=== PATIENT | male | born 1960 | race Caucasian/White ===

== ENCOUNTER 2023-10-31 22:46 | Observation (INO) ==
--- NOTE | 2023-10-31 23:18 | Emergency Department Note ---
Impression & Plan TIA (transient ischemic attack) ED Provider Note Provider: Sandro Amador MD DATE OF SERVICE: 10/31/2023 CHIEF COMPLAINT: Transient vision and speech issues HISTORY OF PRESENT ILLNESS: Patient is a 62-year-old gentleman history of hyperlipidemia and borderline hypertension presenting here today with family after onset around 9:45 PM of noting that his vision was off. Had trouble reading captions on the TV at home with both eyes. States things felt blurry. Got up and went to the kitchen and had trouble coming with words for his glass/cup. Was able to walk up stairs but was having continued issues with being able to come up with words according to both him and his . No trauma or LOC. No syncope. Denies palpitations. Denies recent travel illness. Denies any numbness or tingling. No slurred speech reported. States he could not remember words for things. Given this came here for evaluation. And route symptoms resolved. Lasted maybe 40 to 45 minutes by the report. No other seizure-like activity. Did have an episode about a year ago about 15 minutes of some blurry vision that resolved. No headache tonight. States symptoms have totally resolved at this time. No history of speech issues. Not on anticoagulation or aspirin. PAST MEDICAL HISTORY: As noted above MEDICATIONS: Reviewed home medication SOCIAL HISTORY: , former smoker PHYSICAL EXAM: GENERAL: alert and oriented in no acute distress on stretcher Head: normocephalic and atraumatic EYES: No injection, discharge or icterus. PERRL, EOMI. NECK: Trachea midline. Supple. ENT: Mucous membranes pink and moist. Pharynx without erythema or exudate. LUNGS: Airway patent. No retractions or tachypnea HEART: Regular bradycardic rate and rhythm. SKIN: Acyanotic, warm, dry, without rashes EXTREMITIES: Without swelling, tenderness or deformity NEUROLOGICAL: No focal deficits. No aphasia. No facial droop or slurred speech. Tongue midline. Normal strength and tone in the extremities. Sensation to gross touch normal. Ambulatory. EK bpm normal sinus rhythm. No PVC or PAC. No acute ST segment elevation or depression with a QTc of 412. CONTINUOUS CARDIAC MONITORING: was ordered and showed a heart rate of 50s bpm in sinus bradycardia to normal sinus rhythm in the 60s Patient's laboratory studies and imaging reviewed. Differential includes Infection, dehydration, metabolic abnormality, hypo/hyperglycemia, electrolyte disturbance, anemia, hypoxia, cardiac sources, intracerebral event, toxicologic, neurologic, as well as other pathologies. IMPRESSION/MEDICAL DECISION MAKING: Patient without headache. Bilateral vision blurriness with associated aphasia. No other numbness or tingling or slurred speech reported. No headache. No significant history of migraine. Symptoms have resolved but lasted 45 minutes. Exam stable here. Will give full dose aspirin. Question this could be TIA. Given the speech issue seems more atypical given his age for complex migraine. Will obtain CT head and CT angiograms to look for vascular abnormality or signs of bleeding but given his resolution of symptoms lower likelihood. Mildly elevated but doubt hypertensive emergency or press syndrome. Does not seem seizure-like in nature. Doubt infectious etiology. Again discussed with them could represent TIA. Blood work here is reassuring without significant anemia or electrolyte abnormality noted. EKG reassuring. CT head and CT angiograms head and neck per radiology report without significant acute findings. Without recurrence of symptoms. Discussed with the patient. Do have concerns could represent TIA pathology. Recommended observation. Patient was agreeable. Hospitalist contacted. DIAGNOSIS: TIA DISPOSITION: Hospitalist will evaluate Patient was agreeable with this plan. Past Med/Surg History Medical History Urinary frequency resolved Right lumbar radiculopathy Benign colonic polyp [place] disease pt unaware Borderline hypertension Hyperlipidemia History of hypertension no meds at present Surgical History History of rotator cuff surgery PS left History of tooth extraction History of tonsillectomy History of vasectomy History of colonoscopy Family History Grandmother (Paternal) Alzheimer disease Uncle Alzheimer disease Father Hypertension Heart disease Other Coronary heart disease Denies family history of Ovarian cancer Prostate cancer Breast cancer Lung cancer Colorectal cancer Social History Smoking Status: Never smoker Tobacco Type: Smokeless Tobacco (Dip or Chew) Age Started Using Tobacco: 17; Age Quit Using Tobacco: 21; packs per day: 0.025; Cigarettes Per Day: socal; Second Hand Exposure: No; Do You Dip or Chew Tobacco: Yes (Former chewer); Hx Alcohol Use: No Hx Substance Use: No Preferred Language: Estonian Communication Ability: Effective Visual Impairment: Limited Hearing Ability: Normal Intelligence Intern Required: No Beliefs That Will Affect Care: None marital status: Current Living Situation: Spouse Current Living Situation Comment: daughter at home current occupational status: employed How many Children do You have: 3 Other Information That Helps Us Care for You: No Feels Safe at Home: Yes Safety Concerns: Feels Safe At This Time Childhood Exposure to Second-Hand Smoke: No Diet: regular Diet Comment: eating healthy caffeine: Yes Dental Care, Regularly: No Physical Activity Frequency: Daily Seatbelt Use: always Sunscreen Use: No Do you think of yourself as: straight/heterosexual Assistive Devices: Contacts and Glasses Allergies Allergies Allergy/AdvReac Type Severity Reaction Status Date / Time rosuvastatin [From Crestor] AdvReac Intermediate muscle Verified 11/01/23 02:39 aches simvastatin [From Zocor] AdvReac Intermediate Muscle Pain Verified 11/01/23 02:39 atorvastatin AdvReac Mild Muscle Pain Verified 11/01/23 02:39 Home Meds Home Medications Medication Instructions Recorded Confirmed multivitamin (Multiple Vitamins 1 tab PO QAM 10/08/21 11/01/23 tablet) meloxicam 15 mg tablet 15 mg PO DAILY 11/01/23 11/01/23 Previous Rx's Medication Instructions Recorded pravastatin 40 mg tablet See Rx Instructions .Route 10/07/23 .COMPLEX #90 tabs Results & Data (ED) Vital Signs Vital Signs - 24 hr 10/31/23 22:48 10/31/23 22:57 10/31/23 23:09 Temperature 36.7 C Temperature Source Temporal Artery Scan Pulse Rate 68 66 61 Pulse Rate from SpO2 Sensor Respiratory Rate 18 15 Respiratory Effort / Characteristics Non-Labored Spontaneous Respiratory Depth Normal Respiratory Pattern Regular Blood Pressure 151/92 H 140/93 Blood Pressure Mean 111 108 Blood Pressure Position Sitting Pulse Oximetry 99 98 Oxygen Delivery Method Room Air Room Air Sepsis Recent Fever Within 48 Hours No Sepsis New/Unexplained Change in Mental Status N/A Sepsis Action Taken by Nursing No Action Required 10/31/23 23:30 11/01/23 00:00 11/01/23 00:00 Temperature Temperature Source Pulse Rate 60 60 Pulse Rate from SpO2 Sensor 60 61 Respiratory Rate 12 11 L Respiratory Effort / Characteristics Respiratory Depth Respiratory Pattern Blood Pressure 135/84 126/88 Blood Pressure Mean 101 95 Blood Pressure Position Pulse Oximetry 100 96 Oxygen Delivery Method Room Air Sepsis Recent Fever Within 48 Hours Sepsis New/Unexplained Change in Mental Status Sepsis Action Taken by Nursing 11/01/23 00:30 11/01/23 00:30 11/01/23 01:00 Temperature Temperature Source Pulse Rate 57 L 55 L Pulse Rate from SpO2 Sensor 57 L 55 L Respiratory Rate 14 17 Respiratory Effort / Characteristics Respiratory Depth Respiratory Pattern Blood Pressure 129/86 131/85 Blood Pressure Mean 104 100 Blood Pressure Position Pulse Oximetry 97 98 Oxygen Delivery Method Room Air Sepsis Recent Fever Within 48 Hours Sepsis New/Unexplained Change in Mental Status Sepsis Action Taken by Nursing 11/01/23 01:30 11/01/23 02:00 11/01/23 02:30 Temperature Temperature Source Pulse Rate 54 L 58 L 59 L Pulse Rate from SpO2 Sensor 56 L 58 L 55 L Respiratory Rate 16 16 20 Respiratory Effort / Characteristics Respiratory Depth Respiratory Pattern Blood Pressure 122/81 123/82 124/83 Blood Pressure Mean 94 95 96 Blood Pressure Position Pulse Oximetry 97 95 96 Oxygen Delivery Method Room Air Room Air Room Air Sepsis Recent Fever Within 48 Hours Sepsis New/Unexplained Change in Mental Status Sepsis Action Taken by Nursing Laboratory Data 11/01/23 03:45 11/01/23 03:45 Lab Results 10/31/23 10/31/23 Range/Units 23:08 23:17 WBC 5.91 (4.8-10.8) K/ul RBC 5.30 (4.70-6.10) M/uL Hgb 15.1 (14.0-18.0) g/dl Hct 43.8 (42.0-52.0) % MCV 82.6 (80.0-100.0) fL MCH 28.5 (25.0-34.0) pg MCHC 34.5 (32.0-36.0) g/dL RDW Std Deviation 37.2 (36.4-46.3) fL RDW Coeff of Aysha 12.3 (11.5-14.5) % Plt Count 216 (130-400) K/uL MPV 9.8 (9.4-12.4) fL Immature Gran % (Auto) 0.2 % Neut % (Auto) 60.3 % Lymph % (Auto) 23.9 % [place] % (Auto) 10.8 % Eos % (Auto) 3.6 % Baso % (Auto) 1.2 % Neut # (Auto) 3.57 (1.40-6.50) K/uL Lymph # (Auto) 1.41 (1.20-3.40) K/uL [place] # (Auto) 0.64 H (0.11-0.59) K/uL Eos # (Auto) 0.21 (0.00-0.50) K/uL Baso # (Auto) 0.07 (0.00-0.20) K/uL Immature Gran # (Auto) 0.01 (0.01-0.20) K/uL PT 10.9 (9.0-12.0) Seconds INR 1.0 (0.9-1.1) APTT 31 (21-31) Seconds PTT Ratio 1.1 Sodium 136 (136-145) mmol/L Potassium 3.8 (3.5-5.1) mmol/L Chloride 101 (98-107) mmol/L Carbon Dioxide 28 (21-32) mmol/L Anion Gap 7 (3-11) BUN 21 (6-23) mg/dl Creatinine 0.95 (0.6-1.4) mg/dl Est Cr Clr Drug Dosing 87.5 ml/min Est GFR ( Amer) 98.3 ml/min Est GFR (Non-Af Amer) 84.9 ml/min BUN/Creatinine Ratio 22.1 H (10-20) Glucose 91 (70-99(Fasting)) mg/dl POC Glucose 91 (70-99) mg/dl Calcium 9.7 (8.6-10.3) mg/dl Magnesium 2.0 (1.7-2.4) mg/dl Total Bilirubin 2.3 H (0.2-1.0) mg/dl AST 33 (13-39) U/L ALT 31 (7-52) U/L Alkaline Phosphatase 61 (34-104) U/L Troponin I High Sens 5.5 (0-20) pg/ml Total Protein 7.0 (6.0-8.3) gm/dl Albumin 4.4 (3.4-5.0) gm/dl Globulin 2.6 (2.5-4.0) gm/dl Albumin/Globulin Ratio 1.7 (0.9-2) Administered Medications Discontinued Medications Aspirin (Aspirin 81 Mg Chew) 324 mg PO NOW STA Stop: 10/31/23 23:28 Last Admin: 10/31/23 23:39 Dose: 324 mg Documented By: EVELYN Ioversol (Optiray 320 125ml) 118 ml IV ONCE ONE Stop: 11/01/23 00:51 Last Admin: 11/01/23 00:44 Dose: 118 ml Documented By: ROSEMARY Imaging Data Radiologist's Impression: Head CT 10/31/23 23:27 Exam(s): CT HEAD Without Contrast EXAM: CT Head Without Intravenous Contrast CLINICAL HISTORY: Reason for exam: neuro deficit, transient vision and aphasia issues. TECHNIQUE: Axial computed tomography images of the head/brain without intravenous contrast. Automated exposure control was utilized for the study. A dose lowering technique was utilized adhering to the principles of ALARA. COMPARISON: No relevant prior studies available. FINDINGS: Brain: Unremarkable. No hemorrhage. There is mild nonspecific white matter changes. No edema. Ventricles: Unremarkable. No ventriculomegaly. Bones/joints: Unremarkable. No acute fracture. Soft tissues: Unremarkable. Sinuses: Unremarkable as visualized. No acute sinusitis. Mastoid air cells: Unremarkable as visualized. No mastoid effusion. IMPRESSION: No evidence of acute intracranial pathology. Electronically signed by: Ivis Rivero MD 11/01/23 01:54 AM Head CTA 10/31/23 23:27 Exam(s): CTA HEAD With Contrast IV Amt: 118 ml EXAM: CT Angiography Head With Intravenous Contrast CLINICAL HISTORY: Reason for exam: neuro deficit,transient vision and aphasia issues. TECHNIQUE: Axial computed tomographic angiography images of the head with intravenous contrast. Automated exposure control was utilized for the study. A dose lowering technique was utilized adhering to the principles of ALARA. MIP reconstructed images were created and reviewed. CONTRAST: Patient received 118 ml of IV contrast COMPARISON: No relevant prior studies available. FINDINGS: The dural venous sinuses are patent. Right internal carotid artery: No acute findings. Intracranial segment is patent with no significant stenosis. No aneurysm. Right anterior cerebral artery: Unremarkable. No occlusion or significant stenosis. No aneurysm. Right middle cerebral artery: Unremarkable. No occlusion or significant stenosis. No aneurysm. Right posterior cerebral artery: Unremarkable. No occlusion or significant stenosis. No aneurysm. Right vertebral artery: Unremarkable as visualized. Left internal carotid artery: No acute findings. Intracranial segment is patent with no significant stenosis. No aneurysm. Left anterior cerebral artery: Unremarkable. No occlusion or significant stenosis. No aneurysm. Left middle cerebral artery: Unremarkable. No occlusion or significant stenosis. No aneurysm. Left posterior cerebral artery: Unremarkable. No occlusion or significant stenosis. No aneurysm. Left vertebral artery: Unremarkable as visualized. Basilar artery: Unremarkable. No occlusion or significant stenosis. No aneurysm. IMPRESSION: Negative CT angiogram of the head. Electronically signed by: Ivis Rivero MD 11/01/23 01:57 AM Neck CTA 10/31/23 23:27 Exam(s): CTA NECK With Contrast IV Amt: 118 ml EXAM: CT Angiography Neck With Intravenous Contrast CLINICAL HISTORY: Reason for exam: neuro deficit, transient vision and aphasia issues. TECHNIQUE: Routine carotid CT angiography protocol was performed with intravenous contrast. NASCET criteria using the distal ICAs for comparison were used for evaluation of stenoses. Automated exposure control was utilized for the study. A dose lowering technique was utilized adhering to the principles of ALARA. MIP reconstructed images were created and reviewed. CONTRAST: Patient received 118 ml of IV contrast COMPARISON: None. FINDINGS: VASCULATURE: Right common carotid artery: Unremarkable. No occlusion or significant stenosis. No dissection. Right internal carotid artery: Unremarkable. Extracranial segment is patent with no occlusion or significant stenosis. No dissection. Right external carotid artery: Unremarkable. No occlusion. Right vertebral artery: Unremarkable. No occlusion or significant stenosis. No dissection. Left common carotid artery: Unremarkable. No occlusion or significant stenosis. No dissection. Left internal carotid artery: Unremarkable. Extracranial segment is patent with no occlusion or significant stenosis. No dissection. Left external carotid artery: Unremarkable. No occlusion. Left vertebral artery: Unremarkable. No occlusion or significant stenosis. No dissection. NECK: Bones/joints: Advanced disc degeneration at C5-6 with critical spinal canal stenosis. Recommend MRI of the cervical spine to evaluate for myelopathy. No acute fracture. Soft tissues: Prominent cervical lymph nodes. Lung apices: Clear. CAROTID STENOSIS REFERENCE USING NASCET CRITERIA: % ICA stenosis = (1 - narrowest ICA diameter/diameter of distal cervical ICA) x 100. Mild - <50% stenosis. Moderate - 50-69% stenosis. Severe - 70-94% stenosis. Near occlusion - 95-99% stenosis. Occluded - 100% stenosis. IMPRESSION: Negative CTA neck. Electronically signed by: Ivis Rivero MD 11/01/23 02:00 AM Discharge Plan Visit Data Chief Complaint: Neuro Symptoms/Deficit Stated Complaint: SUDDEN ONSET BLURRY VISION, CONFUSION ED Provider: Sandro Amador Discharge Problem: TIA (transient ischemic attack) Patient Disposition: Being Evaluated by Hospitalist Discharge Instructions Interventions: ED Discharge Assessment Last Done: 11/01/23 04:12
[2023-10-31] MEDS: ASPIRIN 81 MG CHEW PO STA (23:39)
[2023-10-31 23:48] LABS: Basophils # (auto) 0.07 K/uL (0.00-0.20); Basophils % (auto) 1.2 %; Eosinophils # (auto) 0.21 K/uL (0.00-0.50); Eosinophils % (auto) 3.6 %; Hematocrit (blood only) 43.8 % (42.0-52.0); Hemoglobin 15.1 g/dl (14.0-18.0); Immature Granulocytes # (auto) 0.01 K/uL (0.01-0.20); Immature Granulocytes % (auto) 0.2 %; Lymphocytes # (auto) 1.41 K/uL (1.20-3.40); Lymphocytes % (auto) 23.9 %; Mean Corpuscular Hemoglobin 28.5 pg (25.0-34.0); Mean Corpuscular Hgb Conc 34.5 g/dL (32.0-36.0); Mean Corpuscular Volume 82.6 fL (80.0-100.0); Mean Platelet Volume 9.8 fL (9.4-12.4); Monocytes # (auto) 0.64 K/uL (0.11-0.59); Monocytes % (auto) 10.8 %; Neutrophils # (auto) 3.57 K/uL (1.40-6.50); Neutrophils % (auto) 60.3 %; Platelet Count 216 K/uL (130-400); RDW Coefficient of Variation 12.3 % (11.5-14.5); RDW Standard Deviation 37.2 fL (36.4-46.3); White Blood Count 5.91 K/ul (4.8-10.8)
[2023-10-31 23:51] LABS: Albumin Globulin Ratio 1.7 (0.9-2); Albumin Level 4.4 gm/dl (3.4-5.0); BUN Creatinine Ratio 22.1 (10-20); Bilirubin,Total 2.3 mg/dl (0.2-1.0); Calcium 9.7 mg/dl (8.6-10.3); Creatinine Clr Calc Pharmacy 87.5 ml/min; Est GFR (African American) 98.3 ml/min; Est GFR (Non-African American) 84.9 ml/min; Globulin 2.6 gm/dl (2.5-4.0); Potassium 3.8 mmol/L (3.5-5.1)
[2023-10-31 23:57] LABS: Troponin I High Sensitivity 5.5 pg/ml (0-20)
[2023-11-01 00:10] LABS: Partial Thromboplastin Ratio 1.1; Partial Thromboplastin Time 31 Seconds (21-31); Prothrombin Time 10.9 Seconds (9.0-12.0)
--- OUTSIDE RECORDS SUMMARY | 2023-11-01 00:38 | External Medical Summary | Continuity of Care Document ---
Author Name Unknown Organization [id number] Address [address] [place] [id number] Care Team Providers Care Stapler Coil Unit Name Role Phone Tarik Fagan Primary Care Physician [phone] Encounter [facility] [id number] Date(s): 08/26/23 - 08/26/23 [facility] [address] [facility] Sports Medicine [address] [place] [id number] Encounter Diagnosis Left knee DJD(Discharge Diagnosis) - 08/26/23 Unspecified disorder of synovium and tendon, right shoulder(Discharge Diagnosis) - 08/26/23 Discharge Disposition: Home or Self Care Attending Physician: LORENZO Cuadra Dennis Allergies, Adverse Reactions, Alerts No Known Allergies Assessment and Plan Extracted from: Title:Clinical Document Author:LORENZO Cuadra Denn is Date:08/26/23 OUTPATIENT NOTE Name: STEPHANIE RAYMOND Patient Number:[id number] : 1960 Date of Service: 08/26/2023 HPI: This 62-year-old male presents to the clinic today for follow-up after having left knee Euflexxa series and for his right shoulder after having a corticosteroid injection. Patient states that his right shoulder still causes him pain at times but is more tolerable. He states that most of his pain today seems to be over the anterior aspect of the shoulder. He states his left knee is doing great. He has no pain at this point and is still holding off on ordering Euflexxa. Physical examination: Left knee; range of motion is from 0 degrees of extension to 120 degrees of flexion. There is crepitation with passive range of motion. Patient experiences medial joint line tenderness when the knee is palpated in the flexed position. I was able to slightly manipulate his patella with palpable crepitation. There is no laxity with varus valgus stressing. AP drawer sign and Stella test are negative. Patient is neurovascularly intact in the left lower extremity. Right shoulder: Patient is able to easily forward flex and AB duct to 90 degrees with no weakness with applied resistance. Seminole's test with thumbs pointed downward at 0 and 30 degrees and empty can test present with some weakness but no pain. Patient does experience pain with Bueno Kirit and Neer's impingement tests. He now has mild pain with flexed elbow external rotation to 75 degrees and tenderness to palpation over the bicipital groove. There is no pain with passive abducted internal and external shoulder rotation. Subscapularis liftoff test was negative. Patient has no tenderness over the glenohumeral groove, or AC joint. He has full range of motion of his elbow. Full range of motion of his wrist and fingers. Appropriate dexterity of his digits. He is neurovascular intact in the right upper extremity. Impression: 1. Left knee osteoarthritis 2. Right shoulder impingement syndrome Plan: I advised the patient that he may benefit from applying Voltaren gel to the shoulder. I also showed him some basic range of motion stretching exercises that he can do. If he is still continuing to be symptomatic I said that he could come and at the 4-month point and we could do another subacromial corticosteroid injection. I also advised him that if his knee starts to bother him to contact the clinic and we could order the Euflexxa. Patient verbalizes understanding of all information provided. Thanks for the care that he received. If he has questions or concerns that should arise in the future, he will contact the clinic. Otherwise we will follow-up with him on an as-needed basis. This chart was completed utilizing [employer] voice recognition software. Grammatical errors, random word insertions, pronoun errors, and in complete sentences are an occasional consequence of the system. Any questions or concerns about the content, text, or information contained within the body of this dictation should be addressed directly to the physician for clarification. Medications Euflexxa 10 mg/mL intra-articular solution Start: 01/13/23 9:13:00 EDT, 20 mg =, intra-articular, q7days, Disp# 6 mL, Refills: 0, L KNEE DJD M17.12, Note to Pharmacy: 3 syringes for L knee. Please ship to physician's office: [address] [place] [address], [facility]... Start Date: 01/13/23 Stop Date: 02/03/23 Status: Ordered meloxicam 15 mg oral tablet Start: 08/04/23 13:50:00 EST, 1 tab, PO, Daily, Disp# 30 tab, Refills: 1, Pharmacy: [id number] Start Date: 08/04/23 Status: Ordered multivitamin Start: 05/31/20 7:59:00 EDT, 1 tab, PO, Daily Start Date: 05/31/20 Status: Ordered pravastatin 40 mg oral tablet Start: 07/01/23 15:50:00 EDT Start Date: 07/01/23 Status: Ordered Mental Status 08/26/23 Barriers to Learning one year None evide nt Mandatory Health Literacy Documentation Yes Health Literacy Communication Barriers N ever Primary Language Kittitian Problem List Condition Confirmation Course Effective Dates Status H ealth Status Informant Left rotator cuff tear Confirmed Active Shoulder impingement syndrome Confirmed Active Low back pain Confirmed Active Lumbar radiculopathy Confirmed Active Left knee DJD Confirmed Active Bilateral shoulder tendinopathy Confirmed Active Spinal stenosis Confirmed Active Diagnosis Diagnosis Type Effective Dates Health Status Clinical Service Informant Left knee DJD Discharge Diagnosis 08/26/23 Unspecified disorder of synovium and tendon, right shoulder Discharge Diagnosis 08/26/23 Procedures Procedure Date Related Diagnosis Body Site Status None Completed Social History Social History Type Response Smoking Status Never smoked cigaret raman Sex Outpatient Note * LORENZO Cuadra, Bryan: PERFORM Event Display: .Outpt Note Authored Date: [id number] OUTPATIENT NOTE Name: STEPHANIE RAYMOND Patient Number:[id number] : 1960 Date of Service: 08/26/2023 HPI: This 62-year-old male presents to the clinic today for follow-up after having left knee Euflexxa series and for his right shoulder after having a corticosteroid injection. Patient states that his right shoulder still causes him pain at times but is more tolerable. He states that most of his pain today seems to be over the anterior aspect of the shoulder. He states his left knee is doing great. He has no pain at this point and is still holding off on ordering Euflexxa. Physical examination: Left knee; range of motion is from 0 degrees of extension to 120 degrees of flexion. There is crepitation with passive range of motion. Patient experiences medial joint line tenderness when the knee is palpated in the flexed position. I was able to slightly manipulate his patella with palpable crepitation. There is no laxity with varus valgus stressing. AP drawer sign and Stella test are negative. Patient is neurovascularly intact in the left lower extremity. Right shoulder: Patient is able to easily forward flex and AB duct to 90 degrees with no weakness with applied resistance. Seminole's test with thumbs pointed downward at 0 and 30 degrees and empty can test present with some weakness but no pain. Patient does experience pain with Bueno Kirit andNeer's impingement tests. He now has mild pain with flexed elbow external rotation to 75 degrees and tenderness to palpation over the bicipital groove. There is no pain with passive abducted internaland external shoulder rotation. Subscapularis liftoff test was negative. Patient has no tenderness over the glenohumeral groove, or AC joint. He has full range of motion of his elbow. Full range of motion of his wrist and fingers. Appropriate dexterity of his digits. He is neurovascular intact in the right upper extremity. Impression: 1. Left knee osteoarthritis 2. Right shoulder impingement syndrome Plan: I advised the patient that he may benefit from applying Voltaren gel to the shoulder. I also showed him some basic range of motion stretching exercises that he can do. If he is still continuingto be symptomatic I said that he could come and at the 4-month point and we could do another subacromial corticosteroid injection. I also advised him that if his knee starts to bother him to contact t he clinic and we could order the Euflexxa. Patient verbalizes understanding of all information provided. Thanks for the care that he received. If he has questions or concerns that should arise in thefuture, he will contact the clinic. Otherwise we will follow-up with him on an as-needed basis. This chart was completed utilizing [employer] voice recognition software. Grammatical errors,random word insertions, pronoun errors, and in complete sentences are an occasional consequence of the system. Any questions or concerns about the content, text, or information contained within the body of this dictation should be addressed directly to the physician for clarification. Electronic Signature on File Electronically Reviewed/Signed by: Bryan Cuadra PA-C Author Signature Dt/Tm:08/26/2023 12:05 PM Division of Sports Medicine Electronically Reviewed/Signed by: Arben Deshpande MD Cosigner Signature Dt/Tm: 08/26/2023 01:44 PM Ticket Chopper Assembler for Clinical Affairs, [facility] Professor in Orthopaedics Shipping Technician, [facility] Sports [facility] Patient Care team information Care Team Personnel Name: MD Fagan Paul Position: Referring DIRECT Member Role: Primary Care Provider Address: Address: [address] [place] [address] [place] Name: MD Deshpande Wayne J Position: Physician - Sports Medicine [place] Member Role: Lifetime Relationship Address: Address: [address] [place] [address] Care Team Related Persons Name: RANDOLPH RAYMOND Address: home [address] [place] [id number]
[2023-11-01] MEDS: OPTIRAY 320 125ml IV ONE (00:44)
--- NOTE | 2023-11-01 01:55 | CT Scan Report ---
Exam(s): CT HEAD Without Contrast EXAM: CT Head Without Intravenous Contrast CLINICAL HISTORY: Reason for exam: neuro deficit, transient vision and aphasia issues. TECHNIQUE: Axial computed tomography images of the head/brain without intravenous contrast. Automated exposure control was utilized for the study. A dose lowering technique was utilized adhering to the principles of ALARA. COMPARISON: No relevant prior studies available. FINDINGS: Brain: Unremarkable. No hemorrhage. There is mild nonspecific white matter changes. No edema. Ventricles: Unremarkable. No ventriculomegaly. Bones/joints: Unremarkable. No acute fracture. Soft tissues: Unremarkable. Sinuses: Unremarkable as visualized. No acute sinusitis. Mastoid air cells: Unremarkable as visualized. No mastoid effusion. IMPRESSION: No evidence of acute intracranial pathology. Electronically signed by: Ivis Rivero MD 11/01/23 01:54 AM
--- NOTE | 2023-11-01 01:57 | CT Scan Report ---
Exam(s): CTA HEAD With Contrast IV Amt: 118 ml EXAM: CT Angiography Head With Intravenous Contrast CLINICAL HISTORY: Reason for exam: neuro deficit,transient vision and aphasia issues. TECHNIQUE: Axial computed tomographic angiography images of the head with intravenous contrast. Automated exposure control was utilized for the study. A dose lowering technique was utilized adhering to the principles of ALARA. MIP reconstructed images were created and reviewed. CONTRAST: Patient received 118 ml of IV contrast COMPARISON: No relevant prior studies available. FINDINGS: The dural venous sinuses are patent. Right internal carotid artery: No acute findings. Intracranial segment is patent with no significant stenosis. No aneurysm. Right anterior cerebral artery: Unremarkable. No occlusion or significant stenosis. No aneurysm. Right middle cerebral artery: Unremarkable. No occlusion or significant stenosis. No aneurysm. Right posterior cerebral artery: Unremarkable. No occlusion or significant stenosis. No aneurysm. Right vertebral artery: Unremarkable as visualized. Left internal carotid artery: No acute findings. Intracranial segment is patent with no significant stenosis. No aneurysm. Left anterior cerebral artery: Unremarkable. No occlusion or significant stenosis. No aneurysm. Left middle cerebral artery: Unremarkable. No occlusion or significant stenosis. No aneurysm. Left posterior cerebral artery: Unremarkable. No occlusion or significant stenosis. No aneurysm. Left vertebral artery: Unremarkable as visualized. Basilar artery: Unremarkable. No occlusion or significant stenosis. No aneurysm. IMPRESSION: Negative CT angiogram of the head. Electronically signed by: Ivis Rivero MD 11/01/23 01:57 AM
--- NOTE | 2023-11-01 02:01 | CT Scan Report ---
Exam(s): CTA NECK With Contrast IV Amt: 118 ml EXAM: CT Angiography Neck With Intravenous Contrast CLINICAL HISTORY: Reason for exam: neuro deficit, transient vision and aphasia issues. TECHNIQUE: Routine carotid CT angiography protocol was performed with intravenous contrast. NASCET criteria using the distal ICAs for comparison were used for evaluation of stenoses. Automated exposure control was utilized for the study. A dose lowering technique was utilized adhering to the principles of ALARA. MIP reconstructed images were created and reviewed. CONTRAST: Patient received 118 ml of IV contrast COMPARISON: None. FINDINGS: VASCULATURE: Right common carotid artery: Unremarkable. No occlusion or significant stenosis. No dissection. Right internal carotid artery: Unremarkable. Extracranial segment is patent with no occlusion or significant stenosis. No dissection. Right external carotid artery: Unremarkable. No occlusion. Right vertebral artery: Unremarkable. No occlusion or significant stenosis. No dissection. Left common carotid artery: Unremarkable. No occlusion or significant stenosis. No dissection. Left internal carotid artery: Unremarkable. Extracranial segment is patent with no occlusion or significant stenosis. No dissection. Left external carotid artery: Unremarkable. No occlusion. Left vertebral artery: Unremarkable. No occlusion or significant stenosis. No dissection. NECK: Bones/joints: Advanced disc degeneration at C5-6 with critical spinal canal stenosis. Recommend MRI of the cervical spine to evaluate for myelopathy. No acute fracture. Soft tissues: Prominent cervical lymph nodes. Lung apices: Clear. CAROTID STENOSIS REFERENCE USING NASCET CRITERIA: % ICA stenosis = (1 - narrowest ICA diameter/diameter of distal cervical ICA) x 100. Mild - <50% stenosis. Moderate - 50-69% stenosis. Severe - 70-94% stenosis. Near occlusion - 95-99% stenosis. Occluded - 100% stenosis. IMPRESSION: Negative CTA neck. Electronically signed by: Ivis Rivero MD 11/01/23 02:00 AM
--- NOTE | 2023-11-01 02:22 | History & Physical Report ---
Date of Service November 01, 2023 Assessment & Plan (1) TIA (transient ischemic attack): Plan: - symptoms consistent with TIA, resolved at time of exam - Head CT, CTA Head/Neck wnl - no indication for thrombolytics as symptoms have resolved - Will get MRI Brain w/o contrast - TTE ordered - neurology consulted - on 40mg pravastatin, has not tolerated a number of other statins in the past - start 81mg aspirin qAM - PT/OT ordered - regular diet pending dysphagia screening - monitor on telemetry, may need to consider Holter as OP (2) Hyperlipidemia: Plan: - continue statin - repeat lipid panel qAM, may need to consider high intensity statin if he can tolerate (3) [place] disease: Plan: - total bilirubin= 2.3, stable from prior Plan Diet: Regular pending dysphagia screening Code: Full Dispo: Med Surg w/ tele VTE Prophylaxis: Lovenox History of Present Illness Primary Care Provider: Keo Matson DO 62 year old male with a past medical history of HLD presenting with blurred vision, dysarthria. Last for about 45 minutes and symptoms have since resolved. Denies any episodes like this prior. Denies weakness, headache, blurred vision, change in sensations. He states that all of his symptoms have resolved at this time. ED work up significant for Head CT, Head/Neck CTA without acute findings. S/p aspirin 324mg. Allergies Allergy/AdvReac Type Severity Reaction Status Date / Time rosuvastatin [From Crestor] AdvReac Intermediate muscle Verified 11/01/23 02:39 aches simvastatin [From Zocor] AdvReac Intermediate Muscle Pain Verified 11/01/23 02:39 atorvastatin AdvReac Mild Muscle Pain Verified 11/01/23 02:39 Home Medications Medication Instructions Recorded Confirmed Type multivitamin (Multiple Vitamins 1 tab PO QAM 10/08/21 11/01/23 History tablet) pravastatin 40 mg tablet See Rx Instructions .Route 10/07/23 11/01/23 Rx .COMPLEX #90 tabs meloxicam 15 mg tablet 15 mg PO DAILY 11/01/23 11/01/23 History Past Med/Surg History Medical History Urinary frequency resolved Right lumbar radiculopathy Benign colonic polyp [place] disease pt unaware Borderline hypertension Hyperlipidemia History of hypertension no meds at present Surgical History History of rotator cuff surgery PS left History of tooth extraction History of tonsillectomy History of vasectomy History of colonoscopy Family History Grandmother (Paternal) Alzheimer disease Uncle Alzheimer disease Father Hypertension Heart disease Other Coronary heart disease Denies family history of Ovarian cancer Prostate cancer Breast cancer Lung cancer Colorectal cancer Social History Smoking Status: Never smoker Tobacco Type: Smokeless Tobacco (Dip or Chew) Age Started Using Tobacco: 17; Age Quit Using Tobacco: 21; packs per day: 0.025; Cigarettes Per Day: socal; Second Hand Exposure: No; Do You Dip or Chew Tobacco: Yes (Former chewer); Hx Alcohol Use: No Hx Substance Use: No Preferred Language: Telugu Communication Ability: Effective Visual Impairment: Limited Hearing Ability: Normal Core Man Required: No Beliefs That Will Affect Care: None marital status: Current Living Situation: Spouse Current Living Situation Comment: daughter at home current occupational status: employed How many Children do You have: 3 Other Information That Helps Us Care for You: No Feels Safe at Home: Yes Safety Concerns: Feels Safe At This Time Childhood Exposure to Second-Hand Smoke: No Diet: regular Diet Comment: eating healthy caffeine: Yes Dental Care, Regularly: No Physical Activity Frequency: Daily Seatbelt Use: always Sunscreen Use: No Do you think of yourself as: straight/heterosexual Assistive Devices: Contacts and Glasses Review of Systems Review of Systems: As per above Physical Exam Physical Exam: Constitutional: well-appearing, no acute distress HEENT: NCAT, no conjunctival injection CV: regular rhythm, no murmur appreciated, extremities well-perfused, no LE devan a Resp: CTABL, no wheezes/rales/rhonchi appreciated, no increased work of breathing MSK: no gross deformities appreciated Skin: warm, dry, no rash appreciated Neuro: alert, oriented, no focal neurologic deficit appreciated, CN II-XII intact Results & Data Results & Data Vital Signs (Past 12 Hours) Vital Signs Temp Pulse Resp BP Pulse Ox O2 Del Method 11/01/23 02:00 58 L 16 123/82 95 Room Air 11/01/23 01:30 54 L 16 122/81 97 Room Air 11/01/23 01:00 55 L 17 131/85 98 Room Air 11/01/23 00:30 57 L 14 97 11/01/23 00:30 129/86 11/01/23 00:00 60 11 L 96 11/01/23 00:00 126/88 10/31/23 23:30 60 12 135/84 100 Room Air 10/31/23 23:09 61 15 140/93 98 Room Air 10/31/23 22:57 66 10/31/23 22:48 36.7 C 68 18 151/92 H 99 Room Air Supervising Physician Co-Signing Physician Notes Attending addendum: I have physically seen this patient, have supervised the medical residents activities, and agree with the H&P unless as otherwise noted. Assessment and Plan: TIA/strokelike symptoms- Blurred vision and word finding difficulty that began around 9:45 PM this evening, with duration of 40 to 45 minutes. Patient had a similar episode of 15-minute duration to just about blurry [facility] about 1 year ago Symptoms continue to be completely resolved Differential including but not limited to TIA/tickborne illness/complicated migraine/dehydration Stroke without tPA order set Ordered Lyme testing, which was negative, as patient and reports they have been doing significantly more hiking over the previous 2 days due to unusually warm weather in October in [facility] CT head without contrast, CTA head and neck negative Order MRI brain without contrast Order complete echocardiogram PT/OT assessment Starting aspirin 81 mg every morning Continue current dosing of pravastatin 40 mg, daily, as patient been intolerant of other statins Neurology consult Resident Activity Tracking Resident Involvement: Resident Care Provided Care Provided: Adult Hospital Medicine (2) Hyperlipidemia Hyperlipidemia type: pure hypercholesterolemia Qualified Code(s): E78.00 - Pure hypercholesterolemia, unspecified
[2023-11-01] MEDS ORDERED: PHARMACIST DISCHARGE MED REC CONSULT PRN (02:44)
[2023-11-01 05:03] LABS: Basophils # (auto) 0.05 K/uL (0.00-0.20); Basophils % (auto) 1.1 %; Eosinophils # (auto) 0.16 K/uL (0.00-0.50); Eosinophils % (auto) 3.4 %; Hematocrit (blood only) 40.5 % (42.0-52.0); Hemoglobin 14.6 g/dl (14.0-18.0); Immature Granulocytes # (auto) 0.01 K/uL (0.01-0.20); Immature Granulocytes % (auto) 0.2 %; Lymphocytes # (auto) 1.08 K/uL (1.20-3.40); Lymphocytes % (auto) 22.8 %; Mean Corpuscular Volume 80.4 fL (80.0-100.0); Monocytes # (auto) 0.52 K/uL (0.11-0.59); Neutrophils # (auto) 2.91 K/uL (1.40-6.50); Neutrophils % (auto) 61.5 %; Platelet Count 200 K/uL (130-400); RDW Coefficient of Variation 12.4 % (11.5-14.5); RDW Standard Deviation 35.5 fL (36.4-46.3); Red Blood Count 5.04 M/uL (4.70-6.10); White Blood Count 4.73 K/ul (4.8-10.8)
[2023-11-01 05:15] LABS: BUN Creatinine Ratio 27.5 (10-20); Calcium 9.3 mg/dl (8.6-10.3); Chol HDL Ratio 2.3 (0-5); Creatinine Clr Calc Pharmacy 120.4 ml/min; Est GFR (African American) 117.1 ml/min; Potassium 4.1 mmol/L (3.5-5.1)
--- NOTE | 2023-11-01 06:25 | Billing Data ---
Date of Service November 01, 2023 Coding Level of Care Code 75180 INT INP/OBS CARE
[2023-11-01 08:04] LABS: Estimated Average Glucose 100 mg/dl; Hemoglobin A1C 5.1 % (4.5-5.6)
--- NOTE | 2023-11-01 08:55 | Hospitalist Progress Note ---
Date of Service November 01, 2023 Assessment & Plan (1) TIA (transient ischemic attack): Plan: 62yo male with PMHx significant for HLD, "borderline HTN" presented after onset of blurry vision/difficulty with word finding (ie, glass/cup) and could not remember words for things. Not on ASA/anticoagulation at baseline. Apparently had episode about a year ago which resolved on it's own. Was given 325mg ASA w/ resolution in symptoms at time of admission. BP 151/[address] head without evidence for acute intracranial pathology per report CTA head/neck noting impression "negative CTA neck, negative CT angiogram of the head" Continue asa 81mg daily MRI brain, ECHO pending A1c 5.4 Lipid panel w/ cholesterol 187, LDL 91, HDL 83, TRG 64 (MUCH improved from levels in July 2023 w/ TRG 113, Chol 222, LDL 119, HDL 80) - remains on pravastatin 40mg (intolerant to a number of statins in the past, see PCP note from Dr Rivera) Neurology consult pending PT/OT/speech evals DVT proph: lovenox SQ ordered Lyme testing negative Mag 2.0 TB 2.3, but other LFTs wnl. Hx of Jerry's reported Will change regular diet to AHA given BP and will need monitoring. Suspect needs better BP control, currently 138/92. Amlodipine 5mg x 1 ordered, monitor response. Given Na 134 on AM labs, will add TSH for completeness Notable hgb stable, however MCV is borderline. Given impingement/nerve issues at baseline can check iron panel/ferritin? EKG on admission NSR, 62bpm. Monitor on telemetry, may need to consider Holter as OP . (2) Hyperlipidemia: Plan: - continue statin - repeat lipid panel qAM, may need to consider high intensity statin if he can tolerate (3) [place] disease: Plan: - total bilirubin= 2.3, stable from prior Plan Diet: Regular pending dysphagia screening --> changed to AHA diet. Counseling for heart healthy diet/low sodium at dc Code: Full Dispo: Med Surg w/ tele VTE Prophylaxis: Lovenox Of note, in report for neck CTA "Advanced disc degeneration at C5-6 with critical spinal canal stenosis. Recommend MRI of the cervical spine to evaluate for myelopathy." -- would recommend patient discuss w/ PCP about having further eval (does appear he has seen orthopedics in past for R shoulder impingement syndrome" Admission and Anticipated Discharge Date Admission Date: November 01, 2023 Subjective BRIDGE NOTE: ADMITTED AFTER MIDNIGHT Results & Data Results & Data Vital Signs (Past 12 Hours) Vital Signs Temp Pulse Resp BP Pulse Ox O2 Del Method 11/01/23 07:27 60 11/01/23 06:01 54 L 20 138/92 97 Room Air 11/01/23 04:38 57 L 16 135/92 96 Room Air 11/01/23 04:30 57 L 13 119/87 95 Room Air 11/01/23 04:00 55 L 16 124/86 94 Room Air 11/01/23 04:00 Room Air 11/01/23 04:00 37.0 C 11/01/23 03:30 57 L 12 109/82 96 Room Air 11/01/23 03:14 55 L 16 97 Room Air 11/01/23 03:00 56 L 13 118/79 94 Room Air 11/01/23 02:57 56 L 11/01/23 02:30 59 L 20 124/83 96 Room Air 11/01/23 02:00 58 L 16 123/82 95 Room Air 11/01/23 01:30 54 L 16 122/81 97 Room Air 11/01/23 01:00 55 L 17 131/85 98 Room Air 11/01/23 00:30 57 L 14 97 11/01/23 00:30 129/86 11/01/23 00:00 60 11 L 96 11/01/23 00:00 126/88 10/31/23 23:30 60 12 135/84 100 Room Air 10/31/23 23:09 61 15 140/93 98 Room Air 10/31/23 22:57 66 10/31/23 22:48 36.7 C 68 18 151/92 H 99 Room Air Laboratory Results 11/01/23 10/31/23 10/31/23 Range/Units 03:45 23:17 23:08 WBC 4.73 L 5.91 (4.8-10.8) K/ul RBC 5.04 5.30 (4.70-6.10) M/uL Hgb 14.6 15.1 (14.0-18.0) g/dl Hct 40.5 L 43.8 (42.0-52.0) % MCV 80.4 82.6 (80.0-100.0) fL MCH 29.0 28.5 (25.0-34.0) pg MCHC 36.0 34.5 (32.0-36.0) g/dL RDW Std Deviation 35.5 L 37.2 (36.4-46.3) fL RDW Coeff of Aysha 12.4 12.3 (11.5-14.5) % Plt Count 200 216 (130-400) K/uL MPV 10.0 9.8 (9.4-12.4) fL Immature Gran % (Auto) 0.2 0.2 % Neut % (Auto) 61.5 60.3 % Lymph % (Auto) 22.8 23.9 % [place] % (Auto) 11.0 10.8 % Eos % (Auto) 3.4 3.6 % Baso % (Auto) 1.1 1.2 % Neut # (Auto) 2.91 3.57 (1.40-6.50) K/uL Lymph # (Auto) 1.08 L 1.41 (1.20-3.40) K/uL [place] # (Auto) 0.52 0.64 H (0.11-0.59) K/uL Eos # (Auto) 0.16 0.21 (0.00-0.50) K/uL Baso # (Auto) 0.05 0.07 (0.00-0.20) K/uL Immature Gran # (Auto) 0.01 0.01 (0.01-0.20) K/uL PT 10.9 (9.0-12.0) Seconds INR 1.0 (0.9-1.1) APTT 31 (21-31) Seconds PTT Ratio 1.1 Sodium 134 L 136 (136-145) mmol/L Potassium 4.1 3.8 (3.5-5.1) mmol/L Chloride 103 101 (98-107) mmol/L Carbon Dioxide 24 28 (21-32) mmol/L Anion Gap 7 7 (3-11) BUN 19 21 (6-23) mg/dl Creatinine 0.69 0.95 (0.6-1.4) mg/dl Est Cr Clr Drug Dosing 120.4 87.5 ml/min Est GFR ( Amer) 117.1 98.3 ml/min Est GFR (Non-Af Amer) 101.0 84.9 ml/min BUN/Creatinine Ratio 27.5 H 22.1 H (10-20) Glucose 84 91 (70-99(Fasting)) mg/dl POC Glucose 91 (70-99) mg/dl Estimat Average Glucose 100 mg/dl Hemoglobin A1c 5.1 (4.5-5.6) % Calcium 9.3 9.7 (8.6-10.3) mg/dl Magnesium 2.0 (1.7-2.4) mg/dl Total Bilirubin 2.3 H (0.2-1.0) mg/dl AST 33 (13-39) U/L ALT 31 (7-52) U/L Alkaline Phosphatase 61 (34-104) U/L Troponin I High Sens 5.5 (0-20) pg/ml Total Protein 7.0 (6.0-8.3) gm/dl Albumin 4.4 (3.4-5.0) gm/dl Globulin 2.6 (2.5-4.0) gm/dl Albumin/Globulin Ratio 1.7 (0.9-2) Triglycerides 64 (0-150) mg/dl Cholesterol 187 (0-200) mg/dl LDL Cholesterol, Calc 91 mg/dl VLDL Cholesterol, Calc 13 (0-30) mg/dl HDL Cholesterol 83 mg/dl Cholesterol/HDL Ratio 2.3 (0-5) Lyme Disease Screen Negative (Negative) Diagnostic Findings Head CT 10/31/23 23:27 Exam(s): CT HEAD Without Contrast EXAM: CT Head Without Intravenous Contrast CLINICAL HISTORY: Reason for exam: neuro deficit, transient vision and aphasia issues. TECHNIQUE: Axial computed tomography images of the head/brain without intravenous contrast. Automated exposure control was utilized for the study. A dose lowering technique was utilized adhering to the principles of ALARA. COMPARISON: No relevant prior studies available. FINDINGS: Brain: Unremarkable. No hemorrhage. There is mild nonspecific white matter changes. No edema. Ventricles: Unremarkable. No ventriculomegaly. Bones/joints: Unremarkable. No acute fracture. Soft tissues: Unremarkable. Sinuses: Unremarkable as visualized. No acute sinusitis. Mastoid air cells: Unremarkable as visualized. No mastoid effusion. IMPRESSION: No evidence of acute intracranial pathology. Electronically signed by: Ivis Rivero MD 11/01/23 01:54 AM Head CTA 10/31/23 23:27 Exam(s): CTA HEAD With Contrast IV Amt: 118 ml EXAM: CT Angiography Head With Intravenous Contrast CLINICAL HISTORY: Reason for exam: neuro deficit,transient vision and aphasia issues. TECHNIQUE: Axial computed tomographic angiography images of the head with intravenous contrast. Automated exposure control was utilized for the study. A dose lowering technique was utilized adhering to the principles of ALARA. MIP reconstructed images were created and reviewed. CONTRAST: Patient received 118 ml of IV contrast COMPARISON: No relevant prior studies available. FINDINGS: The dural venous sinuses are patent. Right internal carotid artery: No acute findings. Intracranial segment is patent with no significant stenosis. No aneurysm. Right anterior cerebral artery: Unremarkable. No occlusion or significant stenosis. No aneurysm. Right middle cerebral artery: Unremarkable. No occlusion or significant stenosis. No aneurysm. Right posterior cerebral artery: Unremarkable. No occlusion or significant stenosis. No aneurysm. Right vertebral artery: Unremarkable as visualized. Left internal carotid artery: No acute findings. Intracranial segment is patent with no significant stenosis. No aneurysm. Left anterior cerebral artery: Unremarkable. No occlusion or significant stenosis. No aneurysm. Left middle cerebral artery: Unremarkable. No occlusion or significant stenosis. No aneurysm. Left posterior cerebral artery: Unremarkable. No occlusion or significant stenosis. No aneurysm. Left vertebral artery: Unremarkable as visualized. Basilar artery: Unremarkable. No occlusion or significant stenosis. No aneurysm. IMPRESSION: Negative CT angiogram of the head. Electronically signed by: Ivis Rivero MD 11/01/23 01:57 AM Neck CTA 10/31/23 23:27 Exam(s): CTA NECK With Contrast IV Amt: 118 ml EXAM: CT Angiography Neck With Intravenous Contrast CLINICAL HISTORY: Reason for exam: neuro deficit, transient vision and aphasia issues. TECHNIQUE: Routine carotid CT angiography protocol was performed with intravenous contrast. NASCET criteria using the distal ICAs for comparison were used for evaluation of stenoses. Automated exposure control was utilized for the study. A dose lowering technique was utilized adhering to the principles of ALARA. MIP reconstructed images were created and reviewed. CONTRAST: Patient received 118 ml of IV contrast COMPARISON: None. FINDINGS: VASCULATURE: Right common carotid artery: Unremarkable. No occlusion or significant stenosis. No dissection. Right internal carotid artery: Unremarkable. Extracranial segment is patent with no occlusion or significant stenosis. No dissection. Right external carotid artery: Unremarkable. No occlusion. Right vertebral artery: Unremarkable. No occlusion or significant stenosis. No dissection. Left common carotid artery: Unremarkable. No occlusion or significant stenosis. No dissection. Left internal carotid artery: Unremarkable. Extracranial segment is patent with no occlusion or significant stenosis. No dissection. Left external carotid artery: Unremarkable. No occlusion. Left vertebral artery: Unremarkable. No occlusion or significant stenosis. No dissection. NECK: Bones/joints: Advanced disc degeneration at C5-6 with critical spinal canal stenosis. Recommend MRI of the cervical spine to evaluate for myelopathy. No acute fracture. Soft tissues: Prominent cervical lymph nodes. Lung apices: Clear. CAROTID STENOSIS REFERENCE USING NASCET CRITERIA: % ICA stenosis = (1 - narrowest ICA diameter/diameter of distal cervical ICA) x 100. Mild - <50% stenosis. Moderate - 50-69% stenosis. Severe - 70-94% stenosis. Near occlusion - 95-99% stenosis. Occluded - 100% stenosis. IMPRESSION: Negative CTA neck. Electronically signed by: Ivis Rivero MD 11/01/23 02:00 AM PG Care Time/CCT Total # of Minutes Spent Total Time Spent with Patient: Total time spent is greater than 50% in coordination of care (as documented) at patient's floor/unit and/or counseling patient: Coding Diagnoses TIA (transient ischemic attack) G45.9 Pure hypercholesterolemia E78.00 Hyperlipidemia type: pure hypercholesterolemia [place] disease E80.4 (2) Hyperlipidemia Hyperlipidemia type: pure hypercholesterolemia Qualified Code(s): E78.00 - Pure hypercholesterolemia, unspecified
--- NOTE | 2023-11-01 09:14 | Neurology Consultation ---
Date of Consultation November 01, 2023 Assessment & Plan (1) TIA (transient ischemic attack): Plan 62-year-old male presenting with probable TIA potentially localizing to the left cerebral hemisphere, characterized by transient expressive aphasia and associated blurry vision, symptoms resolved within 45 minutes. He recalls a similar episode of blurry vision occurring about 1 year ago, but without other associated symptoms. There may have been some transient loss in his visual field with these episodes, or simply blurry vision, no diplopia, unable to provide more specific visual symptoms, however. I agree with the addition of aspirin 81 mg/day to his medication regimen. Patient should continue with pravastatin. His current lipid panel looks reasonably good, LDL 91, although typical LDL goal would be 70 or less in individuals with a history of TIA or stroke. I note that he has a history of intolerance to several other statins and he may not tolerate high intensity statin therapy. Would recommend 30-day mobile cardiac outpatient telemetry. Patient's blood pressure is appropriate, does not appear to require an antihypertensive at this time. No further immediate recommendations. Does not require additional outpatient neurology follow-up. Patient should continue to follow with his PCP for ongoing monitoring of his dyslipidemia and cardiovascular status. Please call with any questions. History of Present Illness Reason for Consultation: TIA Requesting Physician: Brock Attending Physician: Sha Hough MD History of Present Illness The patient is a 62-year-old male who presented to the emergency department last night with a complaint of blurry vision, difficulty reading captions on the television and associated difficulty with word finding. Symptoms were of sudden onset at around 9:45 PM, but resolved and route to the emergency department. Duration about 45 minutes. He had endorsed a history of an episode of blurry vision occurring about 1 year ago as well. No other specific neurologic symptoms were identified. He had an intact neurological examination. A CT of the head was negative for hemorrhage or acute process. A CTA of the head and neck were unremarkable as well. I independently reviewed these images. Brain parenchyma normal for age, revealing very mild cortical atrophy, no hydrocephalus. No evidence of acute or chronic infarcts. Electrocardiogram reveals sinus bradycardia, 54 bpm. Labs reviewed. WBC 4.73, hemoglobin 14.6, hematocrit 40.5, platelet count 200, sodium 134, potassium 4.1, BUN 19, creatinine 0.69, glucose 84, hemoglobin A1c 5.1, calcium 9.3, magnesium 2.0, AST 30, ALT 31, troponin 5.5, triglycerides 64, cholesterol 187, LDL 91, VLDL 13, HDL 83. Patient has been taking pravastatin. No blood thinners. He has been started on aspirin. Brain MRI and echocardiogram ordered. Patient is currently sitting sitting up comfortably in bed, his daughter is at bedside. He continues to endorse resolution of his acute neurologic symptoms and indicates that he is currently feeling fine. No headache, residual vision disturbance, or difficulty with speech. He denies experiencing any associated hemiparesis or weakness with the above episode. He describes the perceived v ision disturbance as difficulty reading text on his television, could not see some of the words, not sure of 1 side or area of his visual field was prominently affected, no double vision. His brain MRI has been completed, I did independently review these images. No evidence of acute or subacute infarct, no hemorrhage or other acute process. Brain parenchyma grossly normal other than very mild microvascular ischemic change. There is a 1.3 cm right maxillary retention cyst. He does endorse some chronic sinusitis symptoms. His echocardiogram has been completed as well. No cardiac source of emboli. Normal left ventricular systolic function, grade 1 diastolic dysfunction, no interatrial shunt, left atrial size normal. Allergies Allergy/AdvReac Type Severity Reaction Status Date / Time rosuvastatin [From Crestor] AdvReac Intermediate muscle Verified 11/01/23 02:39 aches simvastatin [From Zocor] AdvReac Intermediate Muscle Pain Verified 11/01/23 02:39 atorvastatin AdvReac Mild Muscle Pain Verified 11/01/23 02:39 Home Medications Medication Instructions Recorded Confirmed Type multivitamin (Multiple Vitamins 1 tab PO QAM 10/08/21 11/01/23 History tablet) pravastatin 40 mg tablet See Rx Instructions .Route 10/07/23 11/01/23 Rx .COMPLEX #90 tabs meloxicam 15 mg tablet 15 mg PO DAILY 11/01/23 11/01/23 History Patient History Medical History Urinary frequency resolved Right lumbar radiculopathy Benign colonic polyp [place] disease pt unaware Borderline hypertension Hyperlipidemia History of hypertension no meds at present Surgical History History of rotator cuff surgery PS left History of tooth extraction History of tonsillectomy History of vasectomy History of colonoscopy Family History Grandmother (Paternal) Alzheimer disease Uncle Alzheimer disease Father Hypertension Heart disease Other Coronary heart disease Denies family history of Ovarian cancer Prostate cancer Breast cancer Lung cancer Colorectal cancer Social History Smoking Status: Never smoker Tobacco Type: Smokeless Tobacco (Dip or Chew) Age Started Using Tobacco: 17; Age Quit Using Tobacco: 21; packs per day: 0.025; Cigarettes Per Day: socal; Second Hand Exposure: No; Do You Dip or Chew Tobacco: Yes (Former chewer); Hx Alcohol Use: No Hx Substance Use: No Preferred Language: Bengali Communication Ability: Effective Visual Impairment: Limited Hearing Ability: Normal Chief Guard Required: No Beliefs That Will Affect Care: None marital status: Current Living Situation: Spouse Current Living Situation Comment: daughter at home current occupational status: employed How many Children do You have: 3 Other Information That Helps Us Care for You: No Feels Safe at Home: Yes Safety Concerns: Feels Safe At This Time Childhood Exposure to Second-Hand Smoke: No Diet: regular Diet Comment: eating healthy caffeine: Yes Dental Care, Regularly: No Physical Activity Frequency: Daily Seatbelt Use: always Sunscreen Use: No Do you think of yourself as: straight/heterosexual Assistive Devices: Contacts and Glasses Review of Systems Constitutional: no fever and no chills Eyes: as per Subjective / HPI Ear, Nose, Mouth, Throat: no hearing loss Respiratory: no cough and no dyspnea Cardiovascular: no chest pain and no palpitations Gastrointestinal: no nausea and no vomiting Genitourinary: no dysuria Musculoskeletal: no neck pain and no myalgia Integumentary: no rash and no lesions Neurologic: as per Subjective / HPI; no localized weakness, no loss of sensation, no lack of coordination, no abnormal movements, no syncope, no headache(s), no confusion and no memory loss Psychiatric: no depression and no anxiety Hematologic / Lymphatic: no easy bleeding and no easy bruising Exam (Neuro) Constitutional: well developed and well nourished; no acute distress Eyes: normal visual fiore by confrontation, PERRL and EOM intact bilaterally; no nystagmus Neurologic: Oriented to:: Person, Place and Time Memory: Short Term Intact and Remote Intact Attention: Span Intact and Concentration Intact Speech Fluency: negative Dysarthria or Dysfluency Speech Aphasia: negative Aphasia Fund of Knowledge: Current Events, Past History and Vocabulary Cranial Nerves: Normal II, III, IV, , V, VII, VIII, IX, X, XI and XII Motor Strength: Normal Lower Extremities and Normal Upper Extremities Motor Tone: Normal Lower Extremities and Normal Upper Extremities Muscle Bulk/Involuntary Movements: No Involuntary Movements; negative Muscle Atrophy Sensation: Light Touch Intact, Pain/Temperature Intact and Proprioception Intact Coordination: Normal; negative Dysdiadochokinesia, Finger-Nose Abnormal or Heel-Saleh Abnormal Deep Tendon Reflexes: Rt Triceps: 2+, Lt Triceps: 2+, Rt Biceps: 2+, Lt Biceps: 2+, Rt Brachioradialis: 2+, Lt Brachioradialis: 2+, Rt Patellar: 2+, Lt Patellar: 2+, Rt Ankle: 2+ and Lt Ankle: 2+ Special Tests: negative Babinski Present Results & Data Vital Signs (Past 12 Hours) Vital Signs Temp Pulse Resp BP Pulse Ox O2 Del Method 11/01/23 07:27 60 11/01/23 06:01 54 L 20 138/92 97 Room Air 11/01/23 04:38 57 L 16 135/92 96 Room Air 11/01/23 04:30 57 L 13 119/87 95 Room Air 11/01/23 04:00 55 L 16 124/86 94 Room Air 11/01/23 04:00 Room Air 11/01/23 04:00 37.0 C 11/01/23 03:30 57 L 12 109/82 96 Room Air 11/01/23 03:14 55 L 16 97 Room Air 11/01/23 03:00 56 L 13 118/79 94 Room Air 11/01/23 02:57 56 L 11/01/23 02:30 59 L 20 124/83 96 Room Air 11/01/23 02:00 58 L 16 123/82 95 Room Air 11/01/23 01:30 54 L 16 122/81 97 Room Air 11/01/23 01:00 55 L 17 131/85 98 Room Air 11/01/23 00:30 57 L 14 97 11/01/23 00:30 129/86 11/01/23 00:00 60 11 L 96 11/01/23 00:00 126/88 10/31/23 23:30 60 12 135/84 100 Room Air 10/31/23 23:09 61 15 140/93 98 Room Air 10/31/23 22:57 66 10/31/23 22:48 36.7 C 68 18 151/92 H 99 Room Air Coding Level of Care Code 41129 INT INP/OBS CARE 3/75MIN Diagnoses TIA (transient ischemic attack) G45.9 Time Spent (min) 80 Comment Total time includes patient contact, chart review, counseling, note preparation
--- NOTE | 2023-11-01 09:56 | Magnetic Resonance Report ---
MRI OF THE BRAIN WITHOUT IV CONTRAST CLINICAL HISTORY: Transient ischemic attack COMPARISON STUDY: CT of the brain dated 11/01/2023. TECHNIQUE: MRI of the brain was performed utilizing various T1 and T2-weighted sequences in the axial , sagittal, and coronal planes. IV contrast was not administered for this examination. FINDINGS: Brain parenchyma: There is minimal microangiopathic change. There is no hemorrhage or mass effect. Th ere is no restricted diffusion to suggest acute ischemia. Restrepo-white matter differentiation is preser tierney. No extra-axial fluid collection is seen. The cerebellar tonsils are normal in configuration. Ventricles, sulci, and cisterns: Normal in configuration. Pituitary and sella: Unremarkable. Intracranial vasculature: Normal flow voids are maintained at the skull base. Orbits: The bony orbits are grossly intact. Orbital contents are normal in appearance. Sinuses and mastoids: There is trace mucosal thickening within the maxillary antra noted a 1.3 cm ret ention cyst on the right. The remaining paranasal sinuses and the mastoid air cells are clear. Calvarium: Unremarkable. Cervical cord: Partially visualized cervical spinal cord is normal in morphology and signal intensity . IMPRESSION: No acute intracranial abnormality. ACT 112: Negative or not required by law. Electronically signed by: Price Guerrier M.D. 11/01/2023 9:54 AM
[2023-11-01] MEDS: amLODIPine BESYLATE 5 MG TAB PO ONE (10:12)
[2023-11-01] MEDS: ASPIRIN 81 MG ECTAB PO SCH (10:12)
[2023-11-01] MEDS: ENOXAPARIN INJ 40 MG/0.4 ML SYR SQ SCH (10:13)
[2023-11-01] MEDS: PRAVASTATIN SOD 40 MG TAB PO SCH (10:13)
[2023-11-01 10:32] LABS: Thyroid Stimulating Hormone 2.371 uIu/ml (0.300-4.500)
[2023-11-01 10:38] LABS: Ferritin 36.3 ng/ml (8-388)
--- NOTE | 2023-11-01 11:20 | Discharge Summary ---
Date of Service November 01, 2023 Admission HPI Per Admitting Provider 62 year old male with a past medical history of HLD presenting with blurred vision, dysarthria. Last for about 45 minutes and symptoms have since resolved. Denies any episodes like this prior. Denies weakness, headache, blurred vision, change in sensations. He states that all of his symptoms have resolved at this time. ED work up significant for Head CT, Head/Neck CTA without acute findings. S/p aspirin 324mg. Admission Exam Per Admitting Provider Constitutional: well-appearing, no acute distress HEENT: NCAT, no conjunctival injection CV: regular rhythm, no murmur appreciated, extremities well-perfused, no LE edema Resp: CTABL, no wheezes/rales/rhonchi appreciated, no increased work of breathing MSK: no gross deformities appreciated Skin: warm, dry, no rash appreciated Neuro: alert, oriented, no focal neurologic deficit appreciated, CN II-XII intact Principal Diagnosis TIA Discharge Exam General: WD/WN male sitting up in bed, family at bedside, NAD, would like to go home Head atraumatic, normocephalic, mmm, trachea midline Resp: even/unlabored no w/c/r, 97% on RA CV: RRR, faint diastolic murmur, no pitting edema/calf tenderness, pulses palpable GI: +BS, soft/NT : no suazo MSK/Neuro: no slurred speech, no facial droop, strength equal bilaterally, no focal deficits Psych: AOx3, cooperative with exam Discharge Data Allergies Allergy/AdvReac Type Severity Reaction Status Date / Time rosuvastatin [From Crestor] AdvReac Intermediate muscle Verified 11/01/23 02:39 aches simvastatin [From Zocor] AdvReac Intermediate Muscle Pain Verified 11/01/23 02:39 atorvastatin AdvReac Mild Muscle Pain Verified 11/01/23 02:39 Consultations 11/01/23 02:28 ED Decision to Admit Stat 11/01/23 02:44 Consult Neurology Routine Ordered Studies Head CT 10/31/23 23:27 Exam(s): CT HEAD Without Contrast EXAM: CT Head Without Intravenous Contrast CLINICAL HISTORY: Reason for exam: neuro deficit, transient vision and aphasia issues. TECHNIQUE: Axial computed tomography images of the head/brain without intravenous contrast. Automated exposure control was utilized for the study. A dose lowering technique was utilized adhering to the principles of ALARA. COMPARISON: No relevant prior studies available. FINDINGS: Brain: Unremarkable. No hemorrhage. There is mild nonspecific white matter changes. No edema. Ventricles: Unremarkable. No ventriculomegaly. Bones/joints: Unremarkable. No acute fracture. Soft tissues: Unremarkable. Sinuses: Unremarkable as visualized. No acute sinusitis. Mastoid air cells: Unremarkable as visualized. No mastoid effusion. IMPRESSION: No evidence of acute intracranial pathology. Electronically signed by: Ivis Rivero MD 11/01/23 01:54 AM Head CTA 10/31/23 23:27 Exam(s): CTA HEAD With Contrast IV Amt: 118 ml EXAM: CT Angiography Head With Intravenous Contrast CLINICAL HISTORY: Reason for exam: neuro deficit,transient vision and aphasia issues. TECHNIQUE: Axial computed tomographic angiography images of the head with intravenous contrast. Automated exposure control was utilized for the study. A dose lowering technique was utilized adhering to the principles of ALARA. MIP reconstructed images were created and reviewed. CONTRAST: Patient received 118 ml of IV contrast COMPARISON: No relevant prior studies available. FINDINGS: The dural venous sinuses are patent. Right internal carotid artery: No acute findings. Intracranial segment is patent with no significant stenosis. No aneurysm. Right anterior cerebral artery: Unremarkable. No occlusion or significant stenosis. No aneurysm. Right middle cerebral artery: Unremarkable. No occlusion or significant stenosis. No aneurysm. Right posterior cerebral artery: Unremarkable. No occlusion or significant stenosis. No aneurysm. Right vertebral artery: Unremarkable as visualized. Left internal carotid artery: No acute findings. Intracranial segment is patent with no significant stenosis. No aneurysm. Left anterior cerebral artery: Unremarkable. No occlusion or significant stenosis. No aneurysm. Left middle cerebral artery: Unremarkable. No occlusion or significant stenosis. No aneurysm. Left posterior cerebral artery: Unremarkable. No occlusion or significant stenosis. No aneurysm. Left vertebral artery: Unremarkable as visualized. Basilar artery: Unremarkable. No occlusion or significant stenosis. No aneurysm. IMPRESSION: Negative CT angiogram of the head. Electronically signed by: Ivis Rivero MD 11/01/23 01:57 AM Neck CTA 10/31/23 23:27 Exam(s): CTA NECK With Contrast IV Amt: 118 ml EXAM: CT Angiography Neck With Intravenous Contrast CLINICAL HISTORY: Reason for exam: neuro deficit, transient vision and aphasia issues. TECHNIQUE: Routine carotid CT angiography protocol was performed with intravenous contrast. NASCET criteria using the distal ICAs for comparison were used for evaluation of stenoses. Automated exposure control was utilized for the study. A dose lowering technique was utilized adhering to the principles of ALARA. MIP reconstructed images were created and reviewed. CONTRAST: Patient received 118 ml of IV contrast COMPARISON: None. FINDINGS: VASCULATURE: Right common carotid artery: Unremarkable. No occlusion or significant stenosis. No dissection. Right internal carotid artery: Unremarkable. Extracranial segment is patent with no occlusion or significant stenosis. No dissection. Right external carotid artery: Unremarkable. No occlusion. Right vertebral artery: Unremarkable. No occlusion or significant stenosis. No dissection. Left common carotid artery: Unremarkable. No occlusion or significant stenosis. No dissection. Left internal carotid artery: Unremarkable. Extracranial segment is patent with no occlusion or significant stenosis. No dissection. Left external carotid artery: Unremarkable. No occlusion. Left vertebral artery: Unremarkable. No occlusion or significant stenosis. No dissection. NECK: Bones/joints: Advanced disc degeneration at C5-6 with critical spinal canal stenosis. Recommend MRI of the cervical spine to evaluate for myelopathy. No acute fracture. Soft tissues: Prominent cervical lymph nodes. Lung apices: Clear. CAROTID STENOSIS REFERENCE USING NASCET CRITERIA: % ICA stenosis = (1 - narrowest ICA diameter/diameter of distal cervical ICA) x 100. Mild - <50% stenosis. Moderate - 50-69% stenosis. Severe - 70-94% stenosis. Near occlusion - 95-99% stenosis. Occluded - 100% stenosis. IMPRESSION: Negative CTA neck. Electronically signed by: Ivis Rivero MD 11/01/23 02:00 AM Brain MRI 11/01/23 02:44 MRI OF THE BRAIN WITHOUT IV CONTRAST CLINICAL HISTORY: Transient ischemic attack COMPARISON STUDY: CT of the brain dated 11/01/2023. TECHNIQUE: MRI of the brain was performed utilizing various T1 and T2-weighted sequences in the axial, sagittal, and coronal planes. IV contrast was not administered for this examination. FINDINGS: Brain parenchyma: There is minimal microangiopathic change. There is no hemorrhage or mass effect. There is no restricted diffusion to suggest acute ischemia. Restrepo-white matter differentiation is preserved. No extra-axial fluid collection is seen. The cerebellar tonsils are normal in configuration. Ventricles, sulci, and cisterns: Normal in configuration. Pituitary and sella: Unremarkable. Intracranial vasculature: Normal flow voids are maintained at the skull base. Orbits: The bony orbits are grossly intact. Orbital contents are normal in appearance. Sinuses and mastoids: There is trace mucosal thickening within the maxillary antra noted a 1.3 cm retention cyst on the right. The remaining paranasal sinuses and the mastoid air cells are clear. Calvarium: Unremarkable. Cervical cord: Partially visualized cervical spinal cord is normal in morphology and signal intensity. IMPRESSION: No acute intracranial abnormality. ACT 112: Negative or not required by law. Electronically signed by: Price Guerrier M.D. 11/01/2023 9:54 AM ECHOCARDIOGRAM 11/01 No cardiac source of emboli noted LV systolic function is normal Grade I diastolic dysfunction Injection of contrast documented NO INTERATRIAL SHUNT Mild aortic regurgitation RVSP is normal Hospital Course (1) TIA (transient ischemic attack): 62yo male with PMHx significant for HLD, "borderline HTN" presented after onset of blurry vision/difficulty with word finding (ie, glass/cup) and could not remember words for things. Not on ASA/anticoagulation at baseline. Apparently had episode about a year ago which resolved on it's own. Was given 325mg ASA w/ resolution in symptoms at time of admission. BP 151/[address] head without evidence for acute intracranial pathology per report CTA head/neck noting impression "negative CTA neck, negative CT angiogram of the head" s/p ASA 325mg and continued on ASA 81mg MRI brain NEGATIVE ECHO w/ normal EF, no wma. NO INTERATRIAL SHUNT. Mild AR A1c 5.4 Lipid panel w/ cholesterol 187, LDL 91, HDL 83, TRG 64 (MUCH improved from levels in July 2023 w/ TRG 113, Chol 222, LDL 119, HDL 80) - remains on pravastatin 40mg (intolerant to a number of statins in the past, see PCP note from Dr Rivera) Neurology consulted No BP meds/adjustment rec at present time, f/u outpatient Continue ASA Cardiac event monitor recommended-- Navigator consult placed to arrange when they return on Friday Lyme testing negative (had been hiking) Mag 2.0 TB 2.3, but other LFTs wnl. Hx of Jerry's reported Will change regular diet to AHA given BP and will need monitoring. Suspect needs better BP control, currently 138/92. Amlodipine 5mg x 1 ordered however encouraging low salt diet and monitoring BPs at home/with PCP but if remaining elevated discussion was had about need to start medications for better control TSH wnl EKG on admission NSR, 62bpm. No arrhythmia on monitor however arranging 30 day cardiac monitoring at dc as above PT/OT/speech evals undertaken while inpatient and DVT proph w/ Lovenox SQ (2) Hyperlipidemia: Lipid panel as above w/ significant improvement compared to priors and to remain on pravastatin as outlined F/u PCP for ongoing therapy/management (3) Gerlach disease: - total bilirubin= 2.3, stable from prior. no abd pain reported Of note, in report for neck CTA "Advanced disc degeneration at C5-6 with critical spinal canal stenosis. Recommend MRI of the cervical spine to evaluate for myelopathy." No acute issues reported however patient should have f/u with PCP about having further work-up as deemed neccessary. Does have hx R shoulder impingement syndrome which he has followed w/ Orthopedics for Total Time Total Time Spent Total Time Spent (In Minutes): 35 Discharge Plan Discharge Items Patient Disposition: Home - Self-Care Reason For Visit: TIA Discharge Diagnosis: TIA Goals: You have been hospitalized for an acute medical problem. During your stay at [facility], we have made an effort to correct the problem that brought you to the hospital while keeping you as comfortable as possible. Medications were used to bring your condition under control and your discharge instructions will include directions for any medications you should take after leaving the hospital. Please make sure you see your Primary Care Provider as part of your follow up plan. Activity: Resume your previous activity Non-emergency contact: Primary Care Provider Call non-emergency contact if: you have any medication questions, your symptoms worsen, your pain is concerning for you and you have a fever Follow-up/Referrals: Keo Matson DO [Primary Care Provider] - Diet: Heart Healthy Addtl Attending Provider Instructions: You have been hospitalized for concerns for a stroke. Thankfully all imaging has been negative. Your ultrasound of the heart showed a little leaky valve but nothing significant to explain symptoms. Neurology was consulted and recommend you continue baby aspirin 81mg daily at discharge. We are arranging for 30 day event monitor to monitor for any arrhythmias but you have been stable on monitor at present time. Your lipids/cholesterol are well controlled on the pravastatin and you should continue this. Your A1c was well controlled, no diabetes. Your blood pressure was a little on the high side and while neurology is not recommending starting any medications, I would recommend you sticking to a low salt diet and having continued monitoring of your blood pressures at home and with primary care. If they remain elevated, you will likely benefit from additional of medication to help better control this. Please follow up with primary care in the next week to monitor your status. Please return to the ER with any recurrence of your symptoms or for any other symptoms that are concerning for you. Take care! Addtl [employer] Provider Instructions: Risk Factors for Stroke: You can reduce your chances of stroke by working with your medical provider to adopt a healthy lifestyle. Some specific ways to lower your chance of stroke are: * If you are a smoker, now is the time to stop smoking cigarettes * If you are diabetic, improve the control of your blood sugars * Avoid excessive amounts of alcohol * Control high blood pressure * Lose weight if you are overweight * Be sure to lead an active lifestyle * Eat a healthy diet low in salt, cholesterol and fat You should know about other risk factors for stroke that you are unable to control. These include: * Age 55 years or older * Male gender * Certain racial groups: , or / * Family History of Stroke, Mini stroke or Heart Attack * Sickle Cell Disease Follow Up: It is important for you to keep your follow up appointments with your medical provider. Who to Call and When: Medical Emergencies: Call 911 immediately if you experience any of the following warning signs and symptoms of Stroke: * Sudden numbness or weakness of the face, arm or leg, especially on one side of the body * Sudden confusion, trouble speaking or understanding * Sudden trouble seeing in one or both eyes * Sudden trouble walking, dizziness, loss of balance or coordination * Sudden severe headache with no cause Do not delay calling 911 if you experience any warning signs or symptoms of a stroke. Delay in seeking medical attention may affect what treatments can be given to you. . Pending Studies at Discharge: No Stand-Alone Forms: [facility], Smoking Cessation, Medications to Prevent Stroke Medications and DC Order Prescriptions: New aspirin 81 mg Tablet,Delayed Release (Dr/Ec) 81 mg PO QAM Qty: 30 0RF Continued pravastatin 40 mg tablet See Rx Instructions .ROUTE .COMPLEX Qty: 90 3RF Dose Instruction: TAKE 1 TABLET BY MOUTH EVERY DAY Rx Instructions: TAKE 1 TABLET BY MOUTH EVERY DAY multivitamin [Multiple Vitamins] tablet 1 tab PO QAM meloxicam 15 mg tablet 15 mg PO DAILY Discharge Orders: Discharge Order (Routine); Ordered 11/01/23 Ordered By: Sia Olmos Admission Data Admit Date/Time: 11/01/23 02:39 Attending Provider: Sha Hough Admit Provider: Virginia Gutiérrez Primary Care Provider: Keo Matson Other Providers: Orlando Jenkins; Bert Martinez Other Interventions: Discharge Summary Assessment (RN) Last Done: 11/01/23 11:38 Supervising Physician Co-Signing Physician Notes The patient was not seen by me. The chart was reviewed. Case discussed with MARK Magana. Agree with assessment and plan. Brain MRI scan is negative for acute CVA. He has been seen by neurology. He is medically stable for discharge home today, November 01 Coding Level of Care Code INP/OBS EV SAME DAY LV 3,85MIN Diagnoses TIA (transient ischemic attack) G45.9 Pure hypercholesterolemia E78.00 Hyperlipidemia type: pure hypercholesterolemia Gerlach disease E80.4
[2023-11-01] MEDS ORDERED: STROKE PATIENT DISCHARGE STA (11:25)
--- NOTE | 2023-11-01 11:31 | Pharmacy Report ---
- Date of Service November 01, 2023 - Pharmacy CVA/TIA Medication Review Medications to Prevent Stroke handout has been added to the patients discharge packet. Antiplatelet(s) * Aspirin 81 mg po daily Cholesterol * High intensity statin deferred due to previous allergies to statins DVT Prophylaxis * Enoxaparin SQ Therapeutic Anticoagulation * No history of Afib/Aflutter noted Type 2 Diabetes * Patient does not have T2DM
--- NOTE | 2023-11-01 11:33 | Pharmacy Report ---
- Date of Service November 01, 2023 - Pharmacy CVA/TIA Medication Review Medications to Prevent Stroke handout has been added to the patients discharge packet. Antiplatelet(s) * aspirin 81 mg daily Cholesterol * High intensity statin deferred due to intolerance to Crestor and Lipitor, on pravastatin 40mg currently, lipid panel ok, LDL slightly high per Neurology DVT Prophylaxis * enoxaprin 40mg SQ daily Therapeutic Anticoagulation * No history of Afib/Aflutter noted Type 2 Diabetes * Patient does not have T2DM (A1c 5.1% 11/01/23)
--- NOTE | 2023-11-01 11:48 | Electrocardiogram Report ---
Test Reason : Blood Pressure : / mmHG Vent. Rate : 062 BPM Atrial Rate : 062 BPM P-R Int : 172 ms QRS Dur : 100 ms QT Int : 406 ms P-R-T Axes : 065 048 041 degrees QTc Int : 412 ms Normal sinus rhythm Normal ECG No previous ECGs available Confirmed by El Pereira ([id number]) on 11/01/2023 11:47:39 AM Referred By: REFERRED SELF Confirmed By:Kenneth Pereira
[2023-11-01 12:21] LABS: Appearance Urine Clear (Clear); Bilirubin Urine Negative (Negative); Blood Urine Negative (Negative); Color Urine Yellow; Glucose Urine UA Negative (Negative); Ketones Urine 1+ (Negative); Leukocyte Esterase Urine Negative (Negative); Nitrite Urine Negative (Negative); Protein Urine Negative (Negative); Specific Gravity Urine 1.022 (1.000-1.030); Urobilinogen Urine Negative (Negative); pH Urine 5.5 (4.5-7.5)
--- NOTE | 2023-11-01 12:51 | XCELERA ---
[id number]
--- NOTE | 2023-11-03 12:59 | Pharmacy Report ---
Pharmacist Stroke Counseling - Date of Service November 03, 2023 - Scope: Pharmacy has been consulted to provide medication discharge counseling for this patient admitted with transient ischemic attack as per the Pharmacist Discharge Counseling for Stroke Patients Protocol. - Medications on Discharge: Home Medications Medication Instructions Recorded Confirmed multivitamin (Multiple Vitamins 1 tab PO QAM 10/08/21 11/01/23 tablet) meloxicam 15 mg tablet 15 mg PO DAILY 11/01/23 11/01/23 New Rx's Medication Instructions Recorded pravastatin 40 mg tablet See Rx Instructions .Route 10/07/23 .COMPLEX #90 tabs aspirin 81 mg tablet,delayed 81 mg PO QAM #30 tabs 11/01/23 release - Action: The above medications, specifically ones for stroke treatment/prophylaxis, have been reviewed in detail with the patient and/or patient operations support representative(s) prior to discharge. This includes indication, common adverse reactions, drug interactions, and medication administration. Medication counseling has been employed using the teach-back method to ensure understanding. - Outcome: The patient and/or patient operations support representative(s) have demonstrated understanding of the medications. Additional comments: - Patient confirms that aspirin was picked up from pharmacy and that he has begun to take it without issue. - Patient has no concerns at this time. No obvious barriers to medication compliance identified during telephone conversation. Thank you for allowing pharmacy to be involved in the care of this patient. Please call [phone] with any additional questions
== END 2023-11-01 11:38 | disposition home or self-care (01) ==
LOC: ED 22:46 → EDINP 22:46 → SUATTDRO 11-01 02:39 → EDINP 11-01 04:12

== ENCOUNTER 2025-03-16 05:26 | Observation (INO) ==
--- NOTE | 2025-02-09 12:26 | PAT Medication Instructions ---
Medication Instructions Date of Service February 09, 2025 Home Medications Medication Instructions Recorded diphth,pertus(acell),tetanus 2.5 0.5 ml IM ONCE #0.5 mL 03/03/24 Lf unit-8 mcg-5 Lf/0.5mL IM syringe (Boostrix Tdap) meloxicam 7.5 mg tablet 7.5 mg PO DAILY PRN pain 90 days 11/01/24 #90 tabs tamsulosin 0.4 mg capsule (Flomax) 0.4 mg PO DAILY #30 caps 01/31/25 multivitamin (Multiple Vitamins tablet) 1 tab PO QAM meloxicam 7.5 mg tablet 7.5 mg PO DAILY PRN pain tamsulosin 0.4 mg capsule (Flomax) 0.4 mg PO DAILY aspirin 81 mg tablet,delayed release 81 mg PO QPM pravastatin 40 mg tablet 40 mg PO QPM ASK your surgeon for instructions meloxicam 7.5 mg tablet 7.5 mg PO DAILY PRN pain ASK your prescriber and surgeon aspirin 81 mg tablet,delayed release 81 mg PO QPM DO NOT take the morning of surgery multivitamin (Multiple Vitamins tablet) 1 tab PO QAM Take morning of surgery With a small sip of water, OTHERWISE NOTHING TO EAT OR DRINK AFTER MIDNIGHT: tamsulosin 0.4 mg capsule (Flomax) 0.4 mg PO DAILY Take evening before surgery pravastatin 40 mg tablet 40 mg PO QPM Other Notes If you have any questions please call us at [phone] or [phone] or [phone] or [phone]
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
--- NOTE | 2025-03-16 05:34 | History & Physical Bridge Note ---
Date of Service March 16, 2025 History & Physical Bridge Note I have examined the patient, reviewed the History & Physical and in the interval since the performance of the History & Physical I have noted the following changes of clinical significance: consent reviewed/site verified.no changes noted
--- NOTE | 2025-03-16 08:41 | Post Operative Brief Note ---
Immediate Post Op Note Date of Surgery March 16, 2025 Pre & Post Diagnosis Operation Date: 03/16/25 07:00 <No data on this case meets the specified criteria> Osteoarthritis left knee with varus deformity pre and postop diagnosis same I identified the patient and participated in the time-out.: Yes Procedure Operation Date: 03/16/25 07:00 <No data on this case meets the specified criteria> Cemented left total knee replacement Surgeon Arben Deshpande MD Peanut Farmer Farhan/Aryan Estimated Blood Loss 25 Findings Consistent with Post-Op Diagnosis Severe medial disease marked loose bodies severe osteophytes Fluids 800 cc Complications None
--- NOTE | 2025-03-16 08:44 | Operative Report ---
Post Operative Report Pre & Post Diagnosis Operation Date: 03/16/25 07:00 <No data on this case meets the specified criteria> Osteoarthritis left knee with varus deformity pre and postop diagnosis same I identified the patient and participated in the time-out.: Yes Procedure Operation Date: 03/16/25 07:00 <No data on this case meets the specified criteria> Cemented left total knee replacement Surgeon Arben Deshpande MD Track Production Engineer Farhan/Aryan Estimated Blood Loss 25 Findings Consistent with Post-Op Diagnosis Severe medial disease marked osteophytes multiple loose bodies Fluids 800 cc Specimens Bone pathology Drains None Complications None Indications Severe pain failed conservative management Description of Procedure After the patient was appropriate bite site verified consent verified antibiotics confirmed as being given the left lower extremity was prepped and draped use routine fashion. Tourniquet plated to 275 mmHg after exsanguination limb with a rubber band for total of 57 minutes. Midline exposure was utilized parapatellar thyrotomy performed synovectomy completed. Cruciates then resected tibia subluxated menisci resected. Distal femur entered distal femur resected 9 mm. Proximal tibia subluxated resected 4 mm. Extension gap was excellent with a 5 mm spacer. The tibia was sized to a 6 the femur 6 appropriate cutting left plate to the femur anterior posterior, chamfer cuts made. The spacer was then checked in flexion that was excellent with 5 mm. Posterior capsule was then injected. The box cut was then made a size well. The tibial subluxated and then broached and reamed for a size 6 tibia size 5 spacer fit well. Patella tracked well. There was excellent midrange stability and excellent extension flexion arc of 0 to 130 degrees. The patella tracked well. The patella was resected leaving 15 mm and a 38 button was seated after small holes made it tracked well. Ortho mix was then injected all about the knee knee was then soaked in Betadine for 3 minutes irrigated and the permanent cemented into position tibia femur and patella in that order at 12 minutes the tourniquet deflated minor bleeding points controlled electrocautery at 14 minutes knee was flexed spacer removed no bleeding encountered no cement paco removal required knee was irrigated with Pulsavac Betadine the permanent liner seated knee reduced and closed at 40 degrees of flexion with #2 Vicryl 2-0 Vicryl and stainless steel clips appropriate dressing was applied patient transferred recovery in satisfactory descending tolerated procedure well. His was contacted. Summary of implants size 38 patella size 6 left femur posterior cruciate substituting size 6 tibia six 6 x 5 posterior cruciate substituting polytwo bags [place] G cement EBL was roughly 25 cc or less crystalloid 800 cc DVT prophylaxis to begin tomorrow. All the implants were DePuy J&J ATT UNE rotating platform. I attest to the content of the Intraoperative Record and any orders documented therein. Any exceptions are noted below.
--- NOTE | 2025-03-16 08:45 | Orthopedic Progress Note ---
Date of Service March 16, 2025 Orthopedic Progress Note Patient underwent left total knee replacement. Doing well denies chest pain shortness breath fever chills nausea vomiting or headache. Vital signs are stable he is afebrile. Neurovascular check limited by spinal. X-ray pending. Family contacted. EBL 25 cc.
--- NOTE | 2025-03-16 08:46 | Discharge Summary ---
Date of Service March 17, 2025 Admission HPI Per Admitting Provider Left knee pain admitted for left knee replacement cemented Principal Diagnosis Osteoarthritis left knee Discharge Data Allergies Allergy/AdvReac Type Severity Reaction Status Date / Time rosuvastatin [From Crestor] AdvReac Intermediate muscle Verified 03/16/25 05:35 aches simvastatin [From Zocor] AdvReac Intermediate Muscle Pain Verified 03/16/25 05:35 atorvastatin AdvReac Mild Muscle Pain Verified 03/16/25 05:35 Vaccinations None Consultations None Procedures Performed Operation Date: 03/16/25 07:00 <No data on this case meets the specified criteria> Cemented left knee replacement Ordered Studies 03/16/25 05:00 US - OR guided needle placemen Routine Hospital Course (1) Status post left knee replacement: Total Time Total Time Spent Total Time Spent (In Minutes): 5 Discharge Plan Discharge Items Reason For Visit: Left Knee Osteoarthritis Discharge Diagnosis: Status post cemented left knee replacement Activity: Per Instructions section Weightbearing: Left weightbearing Weightbearing Comment: with walker Non-emergency contact: Surgeon Call non-emergency contact if: you have any medication questions, your symptoms worsen, your pain is not controlled, your temperature is above 101, your wound has increased redness and your wound has increased drainage Follow-up/Referrals: Reed Gallagher PA-C [Physician Display Specialist] - 03/31/25 1:30 pm Keo Matson DO [Primary Care Provider] - Diet: Regular Addtl Attending Provider Instructions: New Medicine: * You will likely be taking one or more of these medications: 1. Percocet - Take, as directed, when you need it, every four to six hours to control your pain. 2. Iron Sulfate - Take1x each day for the month after surgery to help you replace the blood lost during surgery. 3. Eliquis - Thins your blood to lessen the chance of forming a blood clot. * The most common side effects of pain medicine and iron are nausea and constipation. If nausea or constipation is too much of a problem or if you have any questions about your new medicines or doses, call [facility] at . We will try to help you manage these issues. "VERY IMPORTANT TO READ AND REVIEW" Blood Clots and Blood Thinning Medicine: * You are given Eliquis during the immediate post-operative period to lessen the risk of blood clots forming in your legs and/or lungs. Take this for 4 weeks after surgery. Once you complete Eliquis take Aspirin 325 mg twice daily x 2 more weeks. Pain: * The immediate post-operative period after knee replacement surgery is often quite painful. * You are given a prescription for pain medicine. You should take it, as directed, when you need it, especially before physical therapy and before going to bed. Pain that interferes with sleep is very common and can last several months. * You will likely need pain medicine for the first four to six weeks. It will not stop all of the pain. The pain will lessen and as you feel better, you may change to milder pain medicine such as Tylenol. * The most common side effects of pain medicine are nausea and constipation, so don't take more than you need. Physical Therapy: * You will have physical therapy two or three times each week for four to six weeks after your surgery in order to regain your knee range of motion and to retrain your knee to work properly. * It is just as important to make sure you are getting your knee perfectly straight as it is to regain your knee bend. * Taking a pain pill an hour before therapy can help you have a more productive and comfortable therapy session if needed. Home Exercise: * You were shown a series of exercises (heel props, heel slides, etc.) in the hospital. Do these exercises three to four times each day including the exercises you were shown in physical therapy. Walking: * Get up and walk several times each day. For the first four weeks, try not to stand or walk for more than one hour at a time. If you do stand or walk for more than one hour, you will not hurt anything, but your knee and leg will likely swell. * As you feel comfortable, you may change from the walker or crutches to a cane and then to independent walking. SELF CARE INSTRUCTIONS AFTER TOTAL KNEE REPLACEMENT A. You may need to continue a physical therapy program after discharge from the hospital. There are several options available to you. Your doctor will assist you in selecting the best one for you. 1. An out-patient facility 2 to 3 times a week for therapy or home therapy. 2. Continue working on all exercises taught to you in the hospital. Your goals should be to increase bending of your knee to 90 degrees and beyond and to fully straighten your knee. B. You may progress at your own pace from walking with a walker or crutches to a cane; then to no assistive devices. C. Make walking a part of your daily routine. Be up as much as comfortable with rest periods throughout the day. Rest with leg elevation is very important. Use the ice wrap frequently for the first 3-4 weeks. D. There are no restrictions on activities. You may ride in a car, shop, participate in hydraulic and plumbing installer and all social activities. E. Wear the long elastic stockings (SUZIE hose) 20 hours a day for six weeks after surgery. They can be removed several times a day for laundering and for a shower. F. Do not place a pillow behind your knee when resting. A pillow at your ankle is okay. G. You may return to previous diet. VERY IMPORTANT TO READ AND REVIEW A. Take Eliquis (blood thinning medication) as directed by your doctor. B. There are a few signs you need to watch for after you are home. Call [facility] if you notice any of the followin. Increased severe knee pain. Some pain is expected especially when you exercise. 2. Increased swelling in your leg or knee; pain or swelling of the calf muscle in either lower leg. 3. Any fluid drainage from the incision. 4. Shortness of breath or chest pain. C. Please call [facility] at if you have any concerns or questions about your operation or recovery. The doctor or his nurse will return your call promptly. D. You must take antibiotics before dental work, bladder, bowel or other surgery. Call the office to obtain a prescription at least 2 days prior to your appointment. * CALL IF INCREASED PAIN, REDNESS, DRAINAGE OR FEVER GREATER THAT 101. * Sutures should be removed 12-14 days after surgery unless you are on chronic steriods, then it will be 14-18 days after surgery. Call your doctor if: * Temperature above 101 degrees F. * Pain not relieved by pain medicine ordered. * Increased drainage or redness from incision. * Notify your doctor with any questions or concerns. Use the knee immobilizer when out of bed today and tomorrow. It can be discontinued entirely on Friday. use your walker when standing/walking ice and elevate the knee frequently to reduce pain/swelling follow up in the office in 2 weeks as scheduled for staple removal Pending Studies at Discharge: No Stand-Alone Forms: My [facility] Medications and DC Order Prescriptions: No Action Boostrix Tdap 2.5-8-5 Lf-mcg-Lf/0.5mL syringe 0.5 ml IM ONCE Qty: 0.5 0RF Patient Comments: 02/08/25, has not taken injection as of yet tamsulosin [Flomax] 0.4 mg capsule 0.4 mg PO DAILY Qty: 30 0RF Patient Comments: only uses prn for kidney stones multivitamin [Multiple Vitamins] tablet 1 tab PO QAM pravastatin 40 mg tablet 40 mg PO QPM Rx Instructions: TAKE 1 TABLET BY MOUTH EVERY DAY aspirin 81 mg tablet,delayed release (DR/EC) 81 mg PO QPM Admission Data Admit Date/Time: 03/16/25 08:54 Attending Provider: Arben Deshpande Admit Provider: Arben Deshpande Primary Care Provider: Keo Matson Other Providers: [employer] [facility]
--- NOTE | 2025-03-16 08:54 | Operative Report ---
Post Operative Report Pre & Post Diagnosis Operation Date: 03/16/25 07:00 Pre-Op Diagnosis: Left Knee Degenerative Joint Disease Post-Op Diagnosis: Left Knee Degenerative Joint Disease I identified the patient and participated in the time-out.: Yes Procedure Operation Date: 03/16/25 07:00 Actual Procedures p Left Total Knee Arthroplasty(Left) - Arben Deshpande MD Surgeon Arben Deshpande MD Tire Changer Aircraft Farhan/Aryan Estimated Blood Loss 25 Findings Consistent with Post-Op Diagnosis Specimens Left knee bone Description of Procedure Patient was brought to the operative suite where he underwent anesthesia. Left lower extremity was prepped and draped in usual sterile fashion. Surgical timeout was performed. Patient underwent a left total knee arthroplasty. Please see Dr. Deshpande's operative report for full details. I was present and assisted with patient positioning, limb positioning, soft tissue retraction, hemostasis, hardware implantation, wound closure, postoperative dressing placement. The patient was taken to the recovery room in stable condition. I attest to the content of the Intraoperative Record and any orders documented therein. Any exceptions are noted below.
--- NOTE | 2025-03-16 09:08 | XRay Report ---
XR knee LT 1 or 2V routine CLINICAL HISTORY: S/P L TKA COMPARISON: 11/22/2024 FINDINGS: Left knee prosthesis shows no hardware complication. There is expected soft tissue gas. Sk in jennifer are present. IMPRESSION: Unremarkable postoperative exam. ACT 112: Negative or not required by law. Electronically signed by: Alex Frank M.D. 03/16/2025 9:07 AM
--- NOTE | 2025-03-16 11:16 | Anesthesiology Progress Note ---
Date of Service March 16, 2025 Anesthesia Post Procedure Vital Signs Vital Signs: Temp Pulse Pulse Resp BP Pulse Ox O2 Del Method 03/16/25 11:14 36.4 C L 54 L 14 123/81 99 Room Air 03/16/25 10:00 36.4 C L 62 14 127/82 100 Room Air 03/16/25 09:50 62 18 111/81 100 Room Air 03/16/25 09:40 64 12 115/83 100 Room Air 03/16/25 09:30 56 L 12 113/80 100 Room Air 03/16/25 09:20 66 20 109/71 100 Room Air 03/16/25 09:10 36.4 C L 72 18 105/64 100 Room Air 03/16/25 09:00 67 18 118/73 98 Room Air 03/16/25 08:49 36.2 C L 83 16 113/74 95 Oxymask 03/16/25 05:42 36.6 C 64 18 156/95 H 98 Room Air O2 Flow Rate 03/16/25 11:14 03/16/25 10:00 03/16/25 09:50 03/16/25 09:40 03/16/25 09:30 03/16/25 09:20 03/16/25 09:10 03/16/25 09:00 03/16/25 08:49 6 03/16/25 05:42 Pain Intensity Left Knee: Pain Intensity: 2 Transfer of Care Handoff Completed per policy Notes Mental Status: alert / awake / arousable Patient Amnestic to Procedure: Yes Nausea / Vomiting: adequately controlled Pain: adequately controlled Airway Patency, RR, SpO2: stable & adequate BP & HR: stable & adequate Hydration State: stable & adequate Neuraxial Anesthesia: was administered and sensory block is resolving Anesthetic Complications: no major complications apparent and Pt Satisfied with anesthetic care
--- NOTE | 2025-03-16 17:35 | Orthopedic Progress Note ---
Date of Service March 16, 2025 Assessment & Plan Admission and Anticipated Discharge Date Admission Date: March 16, 2025 Orthopedic Progress Note Afternoon rounds postop check. Doing well denies chest pain shortness of breath fever chills nausea vomiting or headache. Postop x-rays look excellent. Vital signs are stable he is afebrile. Neurovascular check from sciatic nerve is normal. At this point time he is been up ambulating he is eating and drinking his IV is saline lock. For some reason he was told not to bend his knee needs to bend his knee this was emphasized to try to get as close to 90 as possible. To be full weightbearing with the knee immobilizer on. The knee immobilizer is only to be worn when he is ambulating for the next 48 hours after that it can be discontinued. Initiate DVT prophylaxis tomorrow.
[2025-03-17 03:46] VITALS: O2SAT 97
--- NOTE | 2025-03-17 06:35 | Orthopedic Progress Note ---
Date of Service March 17, 2025 Assessment & Plan Admission and Anticipated Discharge Date Admission Date: March 16, 2025 Orthopedic Progress Note Postop day #1 status post left total knee replacement. Patient is ambulatory. Denies chest pain shortness of breath fever chills nausea vomit headache. Vital signs are stable he is afebrile. Neurovascular check femoral sciatic nerve is normal. Wound dressing clean dry and intact. Calves nontender. Wound dressing change wound is clean and dry. Able to do a straight leg raise with minimal leg flexes to about 60 to 70 degrees. A.m. labs pending. Assessment doing well continue care pathway discharge to home after PT OT. Please discharge with prescriptions for pain for blood thinner and for prednisone 20 mg daily for 10 days. Make sure he gets a dose of IV dexamethasone today Prior to discharge. Instructed to call the office if he has any questions. Instructed not have dressing change until Friday. Instructed to keep wound clean and dry for 2 weeks until jennifer come out.
[2025-03-17 07:09] LABS: Hemoglobin 12.4 g/dl (14.0-18.0); Mean Corpuscular Hemoglobin 28.5 pg (25.0-34.0); Mean Corpuscular Hgb Conc 34.4 g/dL (32.0-36.0); Mean Corpuscular Volume 82.8 fL (80.0-100.0); Mean Platelet Volume 10.1 fL (9.4-12.4); Platelet Count 201 K/uL (130-400); RDW Coefficient of Variation 12.7 % (11.5-14.5); RDW Standard Deviation 38.3 fL (36.4-46.3); Red Blood Count 4.35 M/uL (4.70-6.10); White Blood Count 11.07 K/ul (4.8-10.8)
[2025-03-17 07:29] LABS: BUN Creatinine Ratio 17.9 (10-20); Calcium 9.1 mg/dl (8.6-10.3); Creatinine Clr Calc Pharmacy 94.7 ml/min
[2025-03-17 08:13] VITALS: BP 121/77; PULSE 64; RESP 16; TEMP 97.7
== END 2025-03-17 12:28 | disposition home or self-care (01) ==
LOC: 3W 05:26 → ASU 05:26